=== PATIENT | male | born 1955 | race Caucasian/White ===

== ENCOUNTER 2018-11-09 11:02 | Day surgery (SDC) | payer OTHER ==
[2018-11-09] VITALS (13 sets, daily range): BP systolic 126–159; BP diastolic 66–103; PULSE 63–96; RESP 13–45; Ht 167.6 cm; Wt 85.9 kg
[~2018-11-09] VITALS: Ht 167.6 cm; Wt 85.9 kg
[~2018-11-09 11:02] MED LIST: ALLO300T2 PO; CIPROFLOXACIN 400 MG in D5W 200 ML IVPB SCH; GEMF600T8 PO; GLYCOPYRROLATE 0.4 MG INJ ONE; HYDR25TA6 PO; LOSA100T3 PO; METO-336 PO; NEOSTIGMINE 3 MG/3 ML SYRINGE ONE; TAMS-14 PO
[2018-11-09] MEDS ORDERED: LOSA100T15 PO (11:26)
[2018-11-09] MEDS ORDERED: GABA300C16 PO (11:27)
[2018-11-09] MEDS ORDERED: IOHEXOL 300MG/ML 30 ML BTL ONE (12:00)
--- NOTE | 2018-11-09 12:19 | HPN ---
Date/Time of Note Date/Time of Note DATE: 11/09/18 TIME: 12:19 Interval H&P Admission Note Pt. seen H&P reviewed: No system changes KEITH TIRADO Nov 09, 2018 12:19
--- NOTE | 2018-11-09 13:08 | PDOCDIS ---
Discharge Instructions DIAGNOSIS Discharge Diagnosis Neurogenic bladder and urethral erosion CONDITION Devi Patient Condition: David Good HOME CARE INSTRUCTIONS: Devi Diet Instructions: David Regular ACTIVITY: Devi Activity Restrictions: David No Restrictions FOLLOW UP/APPOINTMENTS Follow-up Plan folow up in office for exchange of supra pubic Tube in 1 month REFERRALS Devi Referring Provider: KEITH Champion EVAN Nov 09, 2018 13:08
--- NOTE | 2018-11-09 13:11 | OPR ---
Date/Time of Note Date/Time of Note DATE: 11/09/18 TIME: 13:10 Operative Report Procedure Date: Nov 09, 2018 Preoperative Diagnosis Neurogenic bladder and urethral erosion Postoperative Diagnosis Same Operation/Procedure Performed Pelvic exam under anesthesia, aspiration of bladder, insertion SPT Surgeon Danielito Fire And Explosion Investigator None Anesthesia Type: general Estimated Blood Loss: none Transfusion none Specimen none Grafts/Implants none Tubes/Drains 14 f SPT Complications none Pt Condition Post Procedure: stable Indications NGB with urethral erosion Procedure Description dict [id number] KEITH TIRADO Nov 09, 2018 13:11
--- NOTE | 2018-11-09 13:18 | PREAC ---
Date/Time of Note Date/Time of Note DATE: 11/09/18 TIME: 13:17 Anesthesia Eval and Record Evaluation Time Pre-Procedure Interview DATE: 11/09/18 TIME: 13:17 Age 63 Sex male NPO: 8 hrs Preoperative diagnosis kidney stone Planned procedure cystoscopy Past Medical History Past Medical History: Includes Cardio: HTN Neuro: Peripheral neuropathy Surgery & Anesthesia Issues No known issue Meds Anticoagulation: No Beta Pia within 24 hr: No Reason Beta Pia not given: Pt. not on B-Pia Reported Medications Gabapentin* (Gabapentin*) 300 Mg Capsule, 300 MG PO TID, #90 CAP 11/09/18 Losartan Potassium* (Losartan Potassium*) 100 Mg Tablet, 100 MG PO DAILY, TAB 11/09/18 Discontinued Reported Medications Metoprolol Succinate* (Toprol XL*) 100 Mg Tab.sr.24h, 100 MG PO DAILY, TAB 04/24/15 Gemfibrozil* (Gemfibrozil*) 600 Mg Tablet, 600 MG PO BID, TAB 04/24/15 Tamsulosin Hcl* (Flomax*) 0.4 Mg Cap.er.24h, 0.4 MG PO DAILY, CAP 04/24/15 Hydrochlorothiazide* (Hydrochlorothiazide*) 25 Mg Tab, 25 MG PO DAILY, TAB 04/24/15 Losartan Potassium* (Cozaar*) 100 Mg Tablet, 100 MG PO DAILY, TAB 04/24/15 Allopurinol* (Allopurinol*) 300 Mg Tablet, 300 MG PO DAILY, TAB 04/24/15 Hydrochlorothiazide (Hydrochlorothiazide) 25 Mg Tablet, 25 MG PO DAILY 01/08/12 Current Medications Ciprofloxacin/ Dextrose 200 ml @ 200 mls/hr PREOP IVPB ; Start 11/09/18 at 06: 00; Stop 11/09/18 at 17:00 Meds reviewed: Yes Allergies Coded Allergies: No Known Allergies (Verified Allergy, Unknown, 11/09/18) Allergies Reviewed: Yes Labs/Studies Labs Reviewed: Reviewed by anesthesiologist test: N/A Pre-procedure Exam Last vitals Vital Signs Date Temp Pulse Resp B/P (MAP) Pulse Ox O2 O2 Flow FiO2 Time Delivery Rate 11/09/18 98.1 63 16 126/66 97 Room Air 11:51 (86) Airway: Adequate mouth opening, Adequate thyromental dist Mallampati: Mallampati III Teeth: Normal Lung: Normal Heart: Normal ASA Physical Status ASA physical status: 2 Emergency: None Pre-operative Attestations Prior to commencing anesthesia and surgery, the patient was re-evaluated, there was verification of: *The patient's identity *The results of appropriate recent lab work and preoperative vital signs *The above evaluation not changing prior to induction *Anesthetic plan, risk benefits, alternative and complications discussed with patient/family; questions answered; patient/family understands, accepts and wishes to proceed. PAPITO KHAN DO Nov 09, 2018 13:18
[2018-11-09] MEDS ORDERED: LIDOCAINE 1% (MDV) 20 ML INJ ONE (13:26)
[2018-11-09] MEDS ORDERED: PROPOFOL 20 ML ONE (13:26)
[2018-11-09] MEDS ORDERED: MIDAZOLAM 1 MG/ML 2 ML INJ ONE (13:26)
[2018-11-09] MEDS ORDERED: ROCURONIUM 50 MG INJ ONE (13:31)
[2018-11-09] MEDS ORDERED: DEXAMETHASONE 4 MG/ML 5 ML INJ ONE (13:36)
[2018-11-09] MEDS ORDERED: FENTAnyl 50 MCG/ML VIAL ONE (13:41)
--- NOTE | 2018-11-09 14:52 | PAC ---
Date/Time of Note Date/Time of Note DATE: 11/09/18 TIME: 14:51 Post-Anesthesia Notes Post-Anesthesia Note Last documented vital signs Vital Signs Date Temp Pulse Resp B/P (MAP) Pulse Ox O2 O2 Flow FiO2 Time Delivery Rate 11/09/18 98.5 90 16 128/75 97 Room Air 1451 Activity: WNL Respiratory function: WNL Cardiovascular function: WNL Mental status: Baseline Pain reasonably controlled: Yes Hydration appropriate: Yes Nausea/Vomiting absent: Yes PAPITO KHAN DO Nov 09, 2018 14:51
--- NOTE | 2018-11-09 14:54 | OPR ---
Date/Time of Note Date/Time of Note DATE: 11/09/18 TIME: 14:51 Operative Report Procedure Date: Nov 09, 2018 Preoperative Diagnosis b/l obstructing ureteral stones Postoperative Diagnosis same Operation/Procedure Performed b/l rgp. right ureteroscopy with holmium laser and basketing of fragments, insertion right ureteral stone, left ureteroscopy with holmium laser. Surgeon Danielito Archery Equipment Repairer none Anesthesia Type: general Estimated Blood Loss: none Transfusion none Specimen stone Grafts/Implants none Tubes/Drains 24 f 4.8 right ureteral stent Complications none Pt Condition Post Procedure: stable Disposition: PACU Indications b/l stone Procedure Description dict [id number] KEITH TIRADO Nov 09, 2018 14:54
[2018-11-09] MEDS ORDERED: hydrALAzine 20 MG INJ IV PRN (15:00)
[2018-11-09] MEDS ORDERED: LABETALOL HCL 20MG INJ IV PRN (15:00)
[2018-11-09] MEDS ORDERED: ONDANSETRON 4 MG INJ IV PRN (15:00)
[2018-11-09] MEDS ORDERED: CIPROFLOXACIN 400MG/D5W 200 ML ONE (15:02)
[2018-11-09] MEDS: HYDROmorphONE 1 MG/5 ML IV SYRINGE IV PRN ×2 (15:05→15:22)
--- NOTE | 2018-11-09 15:12 | OPR ---
DATE OF OPERATION: PREOPERATIVE DIAGNOSES: Bilateral obstructing ureteral calculi. POSTOPERATIVE DIAGNOSES: Bilateral obstructing ureteral calculi. PROCEDURES: Cystoscopy, removal of right ureteral stent, right retrograde pyelogram, right ureterosc opy with endoscopic holmium laser lithotripsy, basketing stone fragments, insertion of right ureteral stent, left retrograde pyelogram, left endoscopic holmium laser lithotripsy. SURGEON: Adrian Esteves MD ANESTHESIA: General. COMPLICATIONS: None. FINDINGS: Bilateral obstructing stones. DRAINS: 24 cm 4.8 double J right ureteral stent. PROCEDURE IN DETAILS: The patient was brought into the operating room and placed on the operating ta ble in the supine lithotomy position. He was prepped and draped in the usual fashion after anesthesi a was induced. A timeout was undertaken and appropriate pressure points were padded. He received pr eoperative antibiotic therapy. A KUB was obtained which demonstrated a previously placed right urete ral stent to be in proper anatomical position. No stone could be appreciated overlying the ureteral pass. Rigid cystoscopy was undertaken with a 12-degree, 30-degree angle lens without abnormalities. The anterior urethra could be appreciated. Trilobar enlargement of prostatic lobes was noted protru ding from the right ureteral orifice. There was a right stent. Left ureteral orifice is within norm al limits. The right stent was brought up to the level of the urethral meatus with the flexible gras pers and wire was placed at the level of the renal pelvis. The stent and string removed intact. Nex t, the right retrograde pyelogram was undertaken demonstrating distal ureter impacted stone. Utilizi ng the semirigid ureteroscope, the ureteroscope was inserted into the distal ureter where the impacte d stone was identified. This was subsequently fragmented with a 365 micron holmium fiber with initia l energy setting of 0.8 joules. The stone fragmented very well without any difficulty and the fragme nts were removed with nitinol tipless basket until no further stone burden could be appreciated. Rep resentative samples sent to pathology for stone analysis. Repeat ureteroscopy into the more proximal portion of the dilated ureter demonstrated no further stone burden and thus lying over the wire. A 24 cm 4.8 double-J ureteral stent was inserted with proximal aspect coiling within the renal pelvis a nd the distal aspect coiling within the bladder. Proper positioning was confirmed with direct vision fluoroscopy and KUB. Left retrograde pyelogram was undertaken which demonstrated complete obstructi on of the distal ureter over the renal pelvis. A wire including an Amplatz and a Glidewire were unab le to be placed proximal to this region due to complete obstruction. Due to complete obstruction, it was decided to undertake left ureteroscopy, so as to place a stent and un-obstruct the kidney. The semirigid ureteroscope was easily entered into the distal ureter where a large stone was appreciated which completely obstructed the ureter and is growing into the wall, thus representing very advanced stone disease. Contrast was unable to pass proximal to this region except for a very slight amount u nder pressure. At no point I passed a wire proximal to this and thus it was decided to take endoscop ic holmium laser lithotripsy, so as to un-obstruct the ureter. This was performed under direct visio n at all times as I did not have proximal access. Preoperatively, he was noted to have an 11 mm ston e on the side. The stent was noted to be very hard and utilizing a joule of 0.8 as well as 1.0 fully fragmented the stone and thus, the setting was increased to 1.2. Fragmentation of the very large st one was undertaken for a prolonged period of time as the stone was very large and very hard. Only fr agmentation was undertaken under direct vision. Despite significant fragmentation of the stone, I wa s unable to get to the most proximal aspect and I was unable to place a wire. Small amount of oozing and edema was appreciated which limited by visualization and thus it was decided to stop the procedu re. Once, I was unable to pass anything proximal to this area and thus, the scope was removed. He to lerated the procedure well. He will follow up and be rescheduled for a second stage left-sided inter vention including left ureteroscopic stone extraction with endoscopic holmium laser lithotripsy and b asketing of fragment. The patient may additionally require antegrade access. There were no noted co mplications. He was discharged home on [place] 5/325 one tab p.o. q.6 hours p.r.n., dispensed #30, no refill. Dictated By: ADRIAN REYNOLDS/NTS Conf#: [id number] DID#: [id number]
[2018-11-09] MEDS ORDERED: HYDROCODONE/APAP (5/325) TAB PO ONE (17:00)
== END 2018-11-09 17:30 | disposition home or self-care (01) ==
LOC: SDS 11:02
PROVIDERS: ATTEND Urology
DX: N20.1 Calculus of ureter (principal)
CPT/HCPCS: 52332; 52352; 74430; 88300; J0744; J1100; J1170; J2250; J3010; Q9967; Z7610; C2617; J2710

== ENCOUNTER 2018-12-08 07:31 | Inpatient (IN) | payer OTHER ==
[~2018-12-08] VITALS: Ht 167.6 cm; Wt 90.0 kg
[~2018-12-08 07:31] MED LIST changes: -ALLO300T2 PO; -CIPROFLOXACIN 400 MG in D5W 200 ML IVPB SCH; +GABA300C16 PO; -GEMF600T8 PO; -GLYCOPYRROLATE 0.4 MG INJ ONE; -HYDR25TA6 PO; +LOSA100T15 PO; -LOSA100T3 PO; -METO-336 PO; -NEOSTIGMINE 3 MG/3 ML SYRINGE ONE; -TAMS-14 PO
[2018-12-08 11:37] VITALS: BP 162/84; PULSE 79; RESP 18
[2018-12-08] MEDS: SOD CHLORIDE 0.9% 1,000 ML IV SCH ×3 (12:06→23:28)
[2018-12-08] MEDS: CEFTRIAXONE 1 GM/50 ML (PMX) 50 ML IVPB SCH (12:08)
[2018-12-08] MEDS: morphine 2 MG INJ IV PRN ×2 (12:09→19:55)
[2018-12-08 12:26] VITALS: Ht 167.6 cm; Wt 90.0 kg
[2018-12-08 14:07] VITALS: BP 142/77; PULSE 71; RESP 18
--- NOTE | 2018-12-08 16:55 | QN ---
Documentation Comment seen and examined ARLENE MALLOY MD Dec 08, 2018 16:55
--- NOTE | 2018-12-08 17:40 | CONS ---
DATE OF ADMISSION: 12/08/2018 DATE OF CONSULTATION: TYPE OF CONSULTATION: Renal. REASON FOR ADMISSION: Renal failure. HISTORY OF PRESENTING ILLNESS: This is a 63-year-old male with a past medical history of hypertensio n, bilateral kidney stones, history of multiple urethral stents, who presented to [facility] on 12/08/2018 secondary to urinary retention. According to the patient, he has urethral stent place d on the right side 3 months ago due to kidney stone. The patient since then has had 2 stents replac ed. He follows urologist there in [place]. The patient had the last stent which was removed on 0 12/05/2018. After that, the patient said that he felt a little better. He was having some urine outp ut; however the next day, he started noticing that he was having some right flank pain. His urine wa s turning brown and he could not make any urine and he came to the emergency department at [place] for further evaluation. On arrival to ED at [facility], he was found to have blood pressur e of 159/91. UA showed small bilirubin, large blood, 300 protein, leukocyte esterase, 25 to 50 RBCs, 5 to 10 WBCs. The patient had labs that showed white count of 9.1, hemoglobin 14.2, platelet count of 132, sodium 136, potassium 4.6, chloride 104, bicarbonate 20, BUN of 37, creatinine of 5.98, calci um of 8.6. The patient had a CT of the abdomen and pelvis that showed severe right-sided hydronephro sis associated with the perinephric fluid stranding, 0.1 x 0.9 x 0.1 cm obstructing stone is identifi ed in right ureteropelvic junction, septate 3 x 5 x 7 mm calculus within the right upper ureter and a punctate 2 mm calculus in the right vesicoureteral junction, right nephrolithiasis, severe chronic l eft hydronephrosis and thinning of the renal cortex, calcified 9 mm calculus within the left mid uret er, advanced diverticulosis, mild aortic atherosclerosis. The patient was transferred to [facility] for insurance reasons and for urologist. PAST MEDICAL HISTORY: 1. Hypertension. 2. History of bilateral kidney stones and ureteral stents. 3. Peripheral neuropathy. ALLERGIES: NONE. MEDICATIONS TAKING AT HOME: 1. Losartan. 2. Gabapentin. SOCIAL HISTORY: Denies any history of smoking, alcohol or any drug use. Lives in [place]. FAMILY HISTORY: Significant for kidney stones in the father. REVIEW OF SYSTEMS: The patient complained of right flank pain, has some suprapubic fullness. Denies any nausea, vomiting, any fevers, chills. Denies any headache, any blurry vision. Denies any focal neurological deficit. Denies any hematemesis, any melena, any bright red blood per rectum. PHYSICAL EXAMINATION: VITAL SIGNS: Blood pressure 142/77, temperature 99, pulse 77, respirations 18. GENERAL: The patient is awake, alert, oriented, does not appear to be in any acute distress. HEENT: Pupils are equal, round, react to light. NECK: Supple. No JVD. HEART: Regular rate and rhythm. LUNGS: Clear to auscultate bilaterally. ABDOMEN: Soft, some suprapubic tenderness. Positive bowel sounds. EXTREMITIES: No clubbing, cyanosis or edema. LABORATORY DATA: Here, sodium 140, potassium 4.5, chloride 108, bicarbonate 22, BUN of 42, creatinin e 8.22. White count of 10.2, hemoglobin 13.1, platelet count of 129. DIAGNOSTIC DATA: CT scan as above. ASSESSMENT AND PLAN: This is a 63-year-old male who presented with: 1. Acute on chronic renal failure likely secondary to severe hydronephrosis, perinephric fluid stran ding, 1.5 cm obstructing stone at the right ureteropelvic junction, additional 7 mm calculus within t he right upper ureter, punctate 2 mm calculus in right vesicoureteral junction. The patient also has severe chronic left hydronephrosis and thinning of the renal cortex, calcified 9 mm calculus within the left mid ureter. 2. Urinary obstruction likely secondary to kidney stone. 3. Hypertension. PLAN: At this period of time, the patient is admitted to med/surg. The patient will be on gentle IV fluids, IV antibiotics. We will send for UA, urine culture. Juli is already in place. Dr. Solomno alexander has been called. The patient will likely need surgical evaluation; however not sure how much of hi s kidney function . We will also check previous labs from [place] regarding the patient's re nal failure. Rest of the treatment will depend on the patient's hospitalization course. Dictated By: ARLENE GAN/YAMIL Conf#: [id number] DID#: [id number] CC: NEYMAR HICKS MD; MONICA PADGETT MD;*EndCC*
[2018-12-08 19:55] VITALS: BP 138/76; PULSE 71; RESP 18
--- NOTE | 2018-12-08 20:02 | CONS ---
Assessment/Plan Assessment/Plan Hospital Course (Demo Recall) 63-year-old male presented initially to [facility] because of flank pain. He underwent a CT scan of the abdomen and pelvis and was diagnosed with right ureteral stone with hydronephrosis. He was transferred to [facility] as they were not able to get a urologist to see him at the other hospital. Patient is known to have a history of kidney stone. His creatinine is high and has increased from what it was at the other hospital. He underwent a repeat CT scan here and that showed: Moderate to severe right hydroureter nephrosis with stranding of surrounding perinephric and pararenal fat. 12 mm obstructing calculus proximal ureter. 6 mm stone in mid to distal ureter. Preservation of right renal parenchyma. Multiple nonobstructing right renal calculi. Severe left hydroureter nephrosis with severe atrophy of the parenchyma. Obstructing stone mid to distal ureter with small nonobstructing stone fragments in the hydronephrotic kidney. Diverticulosis. Right basilar atelectasis. Fatty liver. Upon reviewing the CT scan the left kidney has no parenchyma that is worth saving. Patient depends only on his right kidney which is obstructed by the stone. Therefore he will need to undergo a cystoscopy and insertion of right ureteral stent to drain his kidney and then at a later date go in and do laser lithotripsy to the stone. The patient was here in October and underwent cystoscopy and ureteroscopy for a distal right ureteral stone by . I did put a call to Dr. Esteves and left a message on his cell phone if he would like to assume care of this patient I will sign off to him. Dr. Esteves called me back and he is busy in another hospital all day tomorrow. Therefore I will proceed and insert a JJ stent for him tomorrow. Consultation Date/Type/Reason Admit Date/Time Dec 08, 2018 at 09:15 Date of Consultation: Dec 08, 2018 Type of Consult Urology Reason for Consultation Right ureteral stone with hydronephrosis and renal failure. Requesting Provider: ARLENE MALLOY MD Date/Time of Note DATE: 12/08/18 TIME: 19:47 Hx of Present Illness 63-year-old male presented initially to [facility] because of flank pain. He underwent a CT scan of the abdomen and pelvis and was diagnosed with right ureteral stone with hydronephrosis. He was transferred to [facility] as they were not able to get a urologist to see him at the other hospital. Patient is known to have a history of kidney stone. His creatinine is high and has increased from what it was at the other hospital. He underwent a repeat CT scan here and that showed: Moderate to severe right hydroureter nephrosis with stranding of surrounding perinephric and pararenal fat. 12 mm obstructing calculus proximal ureter. 6 mm stone in mid to distal ureter. Preservation of right renal parenchyma. Multiple nonobstructing right renal calculi. Severe left hydroureter nephrosis with severe atrophy of the parenchyma. Obstructing stone mid to distal ureter with small nonobstructing stone fragments in the hydronephrotic kidney. Diverticulosis. Right basilar atelectasis. Fatty liver. Upon reviewing the CT scan the left kidney has no parenchyma that is worth saving. Patient depends only on his right kidney which is obstructed by the stone. Therefore he will need to undergo a cystoscopy and insertion of right ureteral stent to drain his kidney and then at a later date go in and do laser lithotripsy to the stone. Constitutional: no complaints Eyes: no complaints ENT: no complaints Respiratory: no complaints Cardiovascular: no complaints Gastrointestinal: pain (Lower abdomen and right flank) Genitourinary: flank pain (Right side) Musculoskeletal: no complaints Skin: no complaints Neurologic: no complaints Endocrine: no complaints Lymphatic: no complaints Psychological: no complaints Immunologic: no complaints Past Medical History Medical History: hypertension, other (Peripheral neuropathy) Home Meds Reported Medications Gabapentin* (Gabapentin*) 300 Mg Capsule, 300 MG PO TID, #90 CAP 11/09/18 Losartan Potassium* (Losartan Potassium*) 100 Mg Tablet, 100 MG PO DAILY, TAB 11/09/18 Medications Current Medications Sodium Chloride 1,000 ml @ 100 mls/hr Q10H IV Last administered on 12/08/18at 12:06; Admin Dose 100 MLS/HR; Start 12/08/18 at 12:00 Ceftriaxone Sodium 50 ml @ 100 mls/hr Q24H IVPB Last administered on 12/08/18at 12:08; Admin Dose 100 MLS/HR; Start 12/08/18 at 12:00 Morphine Sulfate (morphine) 2 mg Q4H PRN IV SEVERE PAIN LEVEL 7-10 Last administered on 12/08/18at 12:09; Admin Dose 2 MG; Start 12/08/18 at 12:00 Hydralazine HCl (Apresoline) 25 mg Q8 PO Last administered on 12/08/18at 18:14; Admin Dose 25 MG; Start 12/08/18 at 17:00 Gabapentin (Neurontin) 100 mg TID PO ; Start 12/08/18 at 21:00 Allergies: Coded Allergies: No Known Allergies (Verified Allergy, Unknown, 11/09/18) Past Surgical History Past Surgical Hx: other (Patient has had ureteroscopy's and JJ stents placed before. He also had left inguinal hernia repair) Social History Alcohol Use: occasionally Smoking Status: Never smoker Drug Use: none Exam/Review of Systems Exam Vitals Vital Signs Date Temp Pulse Resp B/P (MAP) Pulse Ox O2 O2 Flow FiO2 Time Delivery Rate 12/08/18 99.0 71 18 142/77 95 14:07 (98) Constitutional: alert Psych: no complaints Head: normocephalic ENMT: nl external ears & nose Neck: supple, non-tender Respiratory: normal air movement; No wheezing Cardiovascular: No jugular venous distention (JVD) Gastrointestinal: soft Genitourinary - Male: nl penis, nl scrotum, CVA tenderness (Right flank) Musculoskeletal: nl extremities to inspection Extremities: No calf tenderness Neurological: nl mental status Skin: nl turgor Results Result Diagram: 12/08/18 1253 12/08/18 1253 Results 24hrs Laboratory Tests Test 12/08/18 12:53 White Blood Count 10.2 # Red Blood Count 4.31 L Hemoglobin 13.1 #L Hematocrit 39.1 #L Mean Corpuscular Volume 90.7 Mean Corpuscular Hemoglobin 30.4 Mean Corpuscular Hemoglobin Concent 33.5 Red Cell Distribution Width 12.9 Platelet Count 129 L Mean Platelet Volume 9.8 Immature Granulocytes % 0.400 Neutrophils % 73.6 Lymphocytes % 15.4 Monocytes % 9.9 Eosinophils % 0.4 Basophils % 0.3 Nucleated Red Blood Cells % 0.0 Immature Granulocytes # 0.040 H Neutrophils # 7.5 Lymphocytes # 1.6 Monocytes # 1.0 H Eosinophils # 0.0 Basophils # 0.0 Nucleated Red Blood Cells # 0.0 Sodium Level 140 Potassium Level 4.5 Chloride Level 108 Carbon Dioxide Level 22 Anion Gap 10 Blood Urea Nitrogen 42 H Creatinine 8.22 H Est Glomerular Filtrat Rate mL/min 7 L Glucose Level 84 Calcium Level 8.[address] scan of the abdomen and pelvis showed: Moderate to severe right hydroureter nephrosis with stranding of surrounding perinephric and pararenal fat. 12 mm obstructing calculus proximal ureter. 6 mm stone in mid to distal ureter. Preservation of right renal parenchyma. Multiple nonobstructing right renal calculi. Severe left hydroureter nephrosis with severe atrophy of the parenchyma. Obstructing stone mid to distal ureter with small nonobstructing stone fragments in the hydronephrotic kidney. Diverticulosis. Right basilar atelectasis. Fatty liver. Medications Medication Current Medications Sodium Chloride 1,000 ml @ 100 mls/hr Q10H IV Last administered on 12/08/18at 12:06; Admin Dose 100 MLS/HR; Start 12/08/18 at 12:00 Ceftriaxone Sodium 50 ml @ 100 mls/hr Q24H IVPB Last administered on 12/08/18at 12:08; Admin Dose 100 MLS/HR; Start 12/08/18 at 12:00 Morphine Sulfate (morphine) 2 mg Q4H PRN IV SEVERE PAIN LEVEL 7-10 Last administered on 12/08/18at 12:09; Admin Dose 2 MG; Start 12/08/18 at 12:00 Hydralazine HCl (Apresoline) 25 mg Q8 PO Last administered on 12/08/18at 18:14; Admin Dose 25 MG; Start 12/08/18 at 17:00 Gabapentin (Neurontin) 100 mg TID PO ; Start 12/08/18 at 21:00 MONICA PADGETT MD Dec 08, 2018 19:57
[2018-12-08] MEDS: GABAPENTIN 100 MG CAP PO SCH (21:19)
[2018-12-08] MEDS ORDERED: ONDANSETRON 4 MG INJ IV PRN (22:30)
[2018-12-09] VITALS (26 sets, daily range): BP systolic 116–189; BP diastolic 61–100; PULSE 74–112; RESP 13–20
--- NOTE | 2018-12-09 01:36 | HP ---
DATE OF ADMISSION: 12/08/2018 CHIEF COMPLAINT: Right flank pain. HISTORY OF PRESENT ILLNESS: The patient is a 63-year-old gentleman with a history of right ureteral stone with hydronephrosis. The patient is also status post laser treatment for his right stone. The patient did also history of cystoscopy and ureteroscopy for a distal right ureter stone by Dr. Esteves . The patient recently had a CT scan of the abdomen and pelvis done at [facility] ER which revealed right ureteral stone with hydronephrosis. The patient also had obstructive uropathy with cr eatinine up to 8.2. Dr. Padgett was called and the patient will be taken to OR tomorrow for cystosco py and insertion of right ureteral stent to drain his kidney and then at a later date, the patient wi ll undergo lithotripsy. The patient also has severe left hydroureter with severe atrophy of the pare nchyma and left kidney in fact has no parenchymal that his worth saving. The patient currently remai ns only on his right kidney which is affected by the stone. The patient also is symptomatic. The pa tient denies any chest pain, shortness of breath. No history of fever or chills. No. No history of recent hematuria. No history of focal weakness. No history of leg edema. PAST MEDICAL HISTORY: Significant for hypertension. ALLERGIES: NONE. SOCIAL HISTORY: No smoking or alcohol abuse. FAMILY HISTORY: The patient's father has kidney stones. PHYSICAL EXAMINATION: GENERAL: Revealed the patient to be awake, alert, fairly oriented. VITAL SIGNS: Temperature 99.2, pulse 71, respiration 18, blood pressure 132/76, O2 saturation 95% on room air. HEENT: Atraumatic, normocephalic. Nose and ears are normal. Oropharynx is clear. NECK: Supple. No mass, no thyromegaly. CHEST: Fairly clear. CARDIOVASCULAR: S1, S2 normal. No murmur. ABDOMEN: Soft. Right flank tenderness present. No guarding, rigidity. Bowel sounds present. EXTREMITIES: No leg edema. NEUROLOGIC: The patient is awake, alert, fairly oriented. LABORATORY DATA: WBC 10.2, hemoglobin 13.1, platelet 129. The patient has some mild thrombocytopeni a even back in 2013, he had a mild thrombocytopenia. Sodium 140, potassium 4.5, BUN 42, creatinine 8 up from 2 back in 2013, bicarbonate is still 22 and potassium is normal. DIAGNOSTIC DATA: CT scan of the abdomen and pelvis done at [facility] revealed moderate to severe right hydroureter with stranding of surrounding perinephric and perirenal fat, 12 mm obstructi ng calculus in proximal ureter, 6 mm stone in the mid to distal ureter of right renal parenchym a, multiple nonobstructive right renal calculi, severe left hydroureteronephrosis with severe atrophy of parenchyma and also diverticulosis. IMPRESSION: 1. Severe right hydroureter with multiple obstructing ureteral stones and preservation of right susan l parenchyma and multiple nonobstructive right renal calculi. 2. Severe left hydroureteronephrosis with severe atrophy of parenchyma and obstructive stone mid to distal ureter. 3. History of hypertension. 4. Possible infected stone versus right pyelonephritis. PLAN: The patient will be admitted on medical floor. The patient has been started on IV fluids and will have a UA and C and S sent. Bustos is in place. The patient has been empirically started on cef triaxone. For hypertension, the patient will be continued on hydralazine. We will add SCD for DVT p rophylaxis. Tylenol and morphine for pain and also Zofran for nausea, vomiting. Plan of care was di scussed with Dr. Clifton Hicks. Meanwhile, Dr. Padgett has been also consulted from urology standpoin t. Dictated By: LADAN BENITES MD AB/NTS Conf#: [id number] DID#: [id number] CC: MONICA PADGETT MD; CLIFTON HICKS MD;*End*
[2018-12-09] MEDS: SOD CHLORIDE 0.9% 1,000 ML IV SCH ×3 (08:00→23:58)
[2018-12-09] MEDS: GABAPENTIN 100 MG CAP PO SCH ×3 (08:32→21:25)
[2018-12-09] MEDS: morphine 2 MG INJ IV PRN (10:19)
--- NOTE | 2018-12-09 11:21 | CONS ---
[facility] HCIS Consult Follow-up Patient Name: Joel Jauregui Unit Number: [id number] Date of : 1955 Patient Status: Admitted Inpatient Attending Doctor: Clifton Nieto MD Edit: ARLENE MALLOY MD on 12/09/18 @ 18:06 SEEN AND EXAMINED Cr 10 s/p obtruction, pt has chronic left hydropnephrosis baseline CR 2.48 will monitor cr after obstrcution id relieved change to cefepime due to pseudomonas coverage phos binder Assessment/Plan Assessment/Plan Hospital Course (Demo Recall) 1. Acute on chronic renal failure likely secondary to severe hydronephrosis, perinephric fluid stranding, 1.5 cm obstructing stone at the right ureteropelvic junction, additional 7 mm calculus within the right upper ureter, punctate 2 mm calculus in right vesicoureteral junction. The patient also has severe chronic left hydronephrosis and thinning of the renal cortex, calcified 9 mm calculus within the left mid ureter. 2. Urinary obstruction likely secondary to kidney stone. 3. Hypertension, uncontrolled. 4. Obesity 5. Normocytic hypochromic anemia 6. UTI 7. Hyperphosphatemia 2/2 BO 8. Diverticulosis. 9. Fatty liver Assessment/Plan (Daily) - med/surg. -pending for urinary stent -better hypertension control -GI prophylaxis start protonix -c/w gentle IV fluids, IV antibiotics. - UA positive for UTI, -urine culture pending. -c/w Bustos is already in place. -Dr. Stockton urology consult is appreciated Consultation Date/Type/Reason Admit Date/Time Dec 08, 2018 at 09:15 Initial Consult Date 12/08/18 Type of Consult nephrology Reason for Consultation dr Nieto Requesting Provider: ARLENE MALLOY MD Date/Time of Note DATE: 12/09/18 TIME: 11:14 24 HR Interval Summary Free Text/Dictation CVA tenderness Exam/Review of Systems Exam Vitals Vital Signs Date Temp Pulse Resp B/P (MAP) Pulse Ox O2 O2 Flow FiO2 Time Delivery Rate 12/09/18 98.6 74 17 158/83 96 Room Air 07:17 (108) Intake and Output 12/08/18 12/08/18 12/09/18 1414:59 22:59 06:59 IntakeIntake Total 1210 ml 1500 ml OutputOutput Total 100 ml 30 ml BalanceBalance 1110 ml 1470 ml Constitutional: alert, oriented ENMT: nl external ears & nose Neck: supple Respiratory: clear to auscultation Gastrointestinal: soft Genitourinary - Male: CVA tenderness (right side) Results Result Diagram: 12/08/18 1253 12/09/18 0520 Results 24hrs Laboratory Tests Test 12/08/18 12:53 12/08/18 19:30 12/08/18 19:50 12/09/18 05:18 White Blood Count 10.2 # Red Blood Count 4.31 L Hemoglobin 13.1 #L Hematocrit 39.1 #L Mean Corpuscular 90.7 Volume Mean Corpuscular 30.4 Hemoglobin Mean Corpuscular 33.5 Hemoglobin Concent Red Cell 12.9 Distribution Width Platelet Count 129 L Mean Platelet Volume 9.8 Immature 0.400 Granulocytes % Neutrophils % 73.6 Lymphocytes % 15.4 Monocytes % 9.9 Eosinophils % 0.4 Basophils % 0.3 Nucleated Red Blood 0.0 Cells % Immature 0.040 H Granulocytes # Neutrophils # 7.5 Lymphocytes # 1.6 Monocytes # 1.0 H Eosinophils # 0.0 Basophils # 0.0 Nucleated Red Blood 0.0 Cells # Sodium Level 140 Potassium Level 4.5 Chloride Level 108 Carbon Dioxide Level 22 Anion Gap 10 Blood Urea Nitrogen 42 H Creatinine 8.22 H Est Glomerular 7 L Filtrat Rate mL/min Glucose Level 84 Calcium Level 8.4 Prothrombin Time 14.1 Prothrombin Time 1.1 Ratio INR International 1.08 Normalized Ratio Urine Color YELLOW Urine Clarity CLOUDY A Urine pH 6.0 Urine Specific 1.008 [place] Urine Ketones NEGATIVE Urine Nitrite NEGATIVE Urine Bilirubin NEGATIVE Urine Urobilinogen NEGATIVE Urine Leukocyte 3+ H Esterase Urine Microscopic > 182 H RBC Urine Microscopic 93 H WBC Urine Bacteria FEW A Urine Mucus FEW A Urine Hemoglobin 3+ H Urine Glucose NEGATIVE Urine Total Protein 2+ H Phosphorus Level 5.8 H Test 12/09/18 05:20 Sodium Level 138 Potassium Level 4.8 Chloride Level 108 Carbon Dioxide Level 23 Anion Gap 7 Blood Urea Nitrogen 54 H Creatinine 10.18 H Est Glomerular 5 L Filtrat Rate mL/min Glucose Level 88 Calcium Level 8.1 L Medications Medication Current Medications Sodium Chloride 1,000 ml @ 100 mls/hr Q10H IV Last administered on 12/09/18at 10:19; Admin Dose 100 MLS/HR; Start 12/08/18 at 12:00 Ceftriaxone Sodium 50 ml @ 100 mls/hr Q24H IVPB Last administered on 12/08/18at 12:08; Admin Dose 100 MLS/HR; Start 12/08/18 at 12:00 Morphine Sulfate (morphine) 2 mg Q4H PRN IV SEVERE PAIN LEVEL 7-10 Last administered on 12/09/18at 10:19; Admin Dose 2 MG; Start 12/08/18 at 12:00 Hydralazine HCl (Apresoline) 25 mg Q8 PO Last administered on 12/09/18at 05:29; Admin Dose 25 MG; Start 12/08/18 at 17:00 Gabapentin (Neurontin) 100 mg TID PO Last administered on 12/09/18at 08:32; Adm in Dose 100 MG; Start 12/08/18 at 21:00 Acetaminophen (Tylenol Tab) 500 mg Q4H PRN PO MILD PAIN(1-3)OR ELEVATED TEMP; Start 12/08/18 at 22:30 Ondansetron HCl (Zofran Inj) 4 mg Q6H PRN IV NAUSEA AND/OR VOMITING; Start 12/08/18 at 22:30 TONY ROB Dec 09, 2018 11:21
[2018-12-09] MEDS: CEFTRIAXONE 1 GM/50 ML (PMX) 50 ML IVPB SCH (12:58)
[2018-12-09] MEDS: METOPROLOL (XL) 25 MG TAB PO SCH (12:59)
--- NOTE | 2018-12-09 15:08 | PN ---
Date/Time of Note Date/Time of Note DATE: 12/09/18 TIME: 15:07 Assessment/Plan VTE [place]axis [place] [facility] [place] risk: 2 SCD applied (from Ns): Yes Pharmacological prophylaxis: other Lines/Catheters IV Catheter Type (from [facility]): Peripheral IV Urinary Cath still in place: Yes Reason Cath still needed: urinary retention Assessment/Plan Assessment/Plan 1. Severe right hydroureter with multiple obstructing ureteral stones and preservation of right renal parenchyma and multiple nonobstructive right renal calculi. - per urology 2. Severe left hydroureteronephrosis with severe atrophy of parenchyma and obstructive stone mid to distal ureter. 3. Acute Kidney Injury - Nephrology follows 4. Possible infected stone versus right pyelonephritis. 5. Gout 6. Obesity - weight management 7.History of hypertension. Patient seen in collaboration with Dr Ochoa. staff Result Diagram: 12/08/18 1253 12/09/18 0520 Results 24hrs Laboratory Tests Test 12/08/18 19:30 12/08/18 19:50 12/09/18 05:18 12/09/18 05:20 Prothrombin Time 14.1 Prothrombin Time 1.1 Ratio INR International 1.08 Normalized Ratio Urine Color YELLOW Urine Clarity CLOUDY A Urine pH 6.0 Urine Specific 1.008 [place] Urine Ketones NEGATIVE Urine Nitrite NEGATIVE Urine Bilirubin NEGATIVE Urine Urobilinogen NEGATIVE Urine Leukocyte 3+ H Esterase Urine Microscopic > 182 H RBC Urine Microscopic 93 H WBC Urine Bacteria FEW A Urine Mucus FEW A Urine Hemoglobin 3+ H Urine Glucose NEGATIVE Urine Total Protein 2+ H Phosphorus Level 5.8 H Sodium Level 138 Potassium Level 4.8 Chloride Level 108 Carbon Dioxide Level 23 Anion Gap 7 Blood Urea Nitrogen 54 H Creatinine 10.18 H Est Glomerular 5 L Filtrat Rate mL/min Glucose Level 88 Calcium Level 8.1 L Subjective 24 Hr Interval Summary Free Text/Dictation -going for stent placement today Eyes: no complaints ENT: no complaints Respiratory: no complaints Cardiovascular: no complaints Gastrointestinal: no complaints Genitourinary: flank pain (right ) Musculoskeletal: no complaints Exam/Review of Systems Exam Vitals Vital Signs Date Temp Pulse Resp B/P (MAP) Pulse Ox O2 O2 Flow FiO2 Time Delivery Rate 12/09/18 100.2 99 17 169/91 98 Room Air 14:13 (117) Intake and Output 12/08/18 12/08/1819 1515:00 23:00 07:00 IntakeIntake Total 1210 ml 1500 ml OutputOutput Total 100 ml 30 ml BalanceBalance 1110 ml 1470 ml Constitutional: alert, oriented, well developed, obese Psych: nl mood/affect Head: atraumatic Eyes: EOMI, nl lids, nl sclera ENMT: nl external ears & nose Neck: non-tender ( ) Respiratory: clear to auscultation Cardiovascular: nl pulses, other (s1s2) Gastrointestinal: soft, non-tender Musculoskeletal: nl extremities to inspection Extremities: normal pulses Neurological: nl mental status, nl speech Skin: nl turgor Lymph: nontender Results Results 24hrs Laboratory Tests Test 12/08/18 19:30 12/08/18 19:50 12/09/18 05:18 12/09/18 05:20 Prothrombin Time 14.1 Prothrombin Time 1.1 Ratio INR International 1.08 Normalized Ratio Urine Color YELLOW Urine Clarity CLOUDY A Urine pH 6.0 Urine Specific 1.008 [place] Urine Ketones NEGATIVE Urine Nitrite NEGATIVE Urine Bilirubin NEGATIVE Urine Urobilinogen NEGATIVE Urine Leukocyte 3+ H Esterase Urine Microscopic > 182 H RBC Urine Microscopic 93 H WBC Urine Bacteria FEW A Urine Mucus FEW A Urine Hemoglobin 3+ H Urine Glucose NEGATIVE Urine Total Protein 2+ H Phosphorus Level 5.8 H Sodium Level 138 Potassium Level 4.8 Chloride Level 108 Carbon Dioxide Level 23 Anion Gap 7 Blood Urea Nitrogen 54 H Creatinine 10.18 H Est Glomerular 5 L Filtrat Rate mL/min Glucose Level 88 Calcium Level 8.1 L Medications Medication Current Medications Sodium Chloride 1,000 ml @ 100 mls/hr Q10H IV Last administered on 12/09/18at 10:19; Admin Dose 100 MLS/HR; Start 12/08/18 at 12:00 Ceftriaxone Sodium 50 ml @ 100 mls/hr Q24H IVPB Last administered on 12/09/18at 12:58; Admin Dose 100 MLS/HR; Start 12/08/18 at 12:00 Morphine Sulfate (morphine) 2 mg Q4H PRN IV SEVERE PAIN LEVEL 7-10 Last administered on 12/09/18at 10:19; Admin Dose 2 MG; Start 12/08/18 at 12:00 Hydralazine HCl (Apresoline) 25 mg Q8 PO Last administered on 12/09/18at 05:29; Admin Dose 25 MG; Start 12/08/18 at 17:00 Gabapentin (Neurontin) 100 mg TID PO Last administered on 12/09/18at 08:32; Admin Dose 100 MG; Start 12/08/18 at 21:00 Acetaminophen (Tylenol Tab) 500 mg Q4H PRN PO MILD PAIN(1-3)OR ELEVATED TEMP; Start 12/08/18 at 22:30 Ondansetron HCl (Zofran Inj) 4 mg Q6H PRN IV NAUSEA AND/OR VOMITING; Start 12/08/18 at 22:30 Metoprolol Succinate (Toprol Xl) 25 mg DAILY PO Last administered on 12/09/18at 12:59; Admin Dose 25 MG; Start 12/09/18 at 12:00 Pantoprazole (Protonix Iv) 40 mg DAILY@06 IV ; Start 12/10/18 at 12:00 Hydralazine HCl (Apresoline) 10 mg Q6H PRN IV SBP>160; Start 12/09/18 at 14:30 JEN SALINAS Dec 09, 2018 15:08
[2018-12-09] MEDS: hydrALAzine 20 MG INJ IV PRN (16:20)
[2018-12-09] MEDS ORDERED: LIDOCAINE 2% 20 ML UROJET SYRINGE ONE (17:27)
[2018-12-09] MEDS ORDERED: IOHEXOL 300MG/ML 30 ML BTL ONE (17:28)
--- NOTE | 2018-12-09 17:28 | PREAC ---
Date/Time of Note Date/Time of Note DATE: 12/09/18 TIME: 17:26 Anesthesia Eval and Record Evaluation Time Pre-Procedure Interview DATE: 12/09/18 TIME: 17:26 Age 63 Sex male NPO: 8 hrs Preoperative diagnosis right ureteral stone with hydronephrosis Planned procedure CYSTOSCOPY RIGHT SIDE JJ STENT Past Medical History Past Medical History: Includes Cardio: HTN Surgery & Anesthesia Issues No known issue Meds Anticoagulation: No Beta Pia within 24 hr: No Reason Beta Pia not given: Pt. not on B-Pia Reported Medications Gabapentin* (Gabapentin*) 300 Mg Capsule, 300 MG PO TID, #90 CAP 11/09/18 Losartan Potassium* (Losartan Potassium*) 100 Mg Tablet, 100 MG PO DAILY, TAB 11/09/18 Current Medications Sodium Chloride 1,000 ml @ 100 mls/hr Q10H IV Last administered on 12/09/18at 10:19; Admin Dose 100 MLS/HR; Start 12/08/18 at 12:00 Ceftriaxone Sodium 50 ml @ 100 mls/hr Q24H IVPB Last administered on 12/09/18at 12:58; Admin Dose 100 MLS/HR; Start 12/08/18 at 12:00 Morphine Sulfate (morphine) 2 mg Q4H PRN IV SEVERE PAIN LEVEL 7-10 Last administered on 12/09/18at 10:19; Admin Dose 2 MG; Start 12/08/18 at 12:00 Hydralazine HCl (Apresoline) 25 mg Q8 PO Last administered on 12/09/18at 05:29; Admin Dose 25 MG; Start 12/08/18 at 17:00 Gabapentin (Neurontin) 100 mg TID PO Last administered on 12/09/18at 08:32; Admin Dose 100 MG; Start 12/08/18 at 21:00 Acetaminophen (Tylenol Tab) 500 mg Q4H PRN PO MILD PAIN(1-3)OR ELEVATED TEMP; Start 12/08/18 at 22:30 Ondansetron HCl (Zofran Inj) 4 mg Q6H PRN IV NAUSEA AND/OR VOMITING; Start 12/08/18 at 22:30 Metoprolol Succinate (Toprol Xl) 25 mg DAILY PO Last administered on 12/09/18at 12:59; Admin Dose 25 MG; Start 12/09/18 at 12:00 Pantoprazole (Protonix Iv) 40 mg DAILY@06 IV ; Start 12/10/18 at 12:00 Hydralazine HCl (Apresoline) 10 mg Q6H PRN IV SBP>160 Last administered on 12/09/18at 16:20; Admin Dose 10 MG; Start 12/09/18 at 14:30 Meds reviewed: Yes Allergies Coded Allergies: No Known Allergies (Verified Allergy, Unknown, 11/09/18) Allergies Reviewed: Yes Labs/Studies Labs Reviewed: Reviewed by anesthesiologist Result Diagram: 12/08/18 1253 12/09/18 0520 Laboratory Tests 12/09/18 05:20 test: N/A (SR) Studies: ECG, CXR (No evidence for active cardiopulmonary disease.) Pre-procedure Exam Last vitals Vital Signs Date Temp Pulse Resp B/P (MAP) Pulse Ox O2 O2 Flow FiO2 Time Delivery Rate 12/09/18 96 18 183/95 98 Room Air 17:09 (124) 12/09/18 99.8 16:20 Airway: Adequate mouth opening Mallampati: Mallampati II Teeth: Normal Lung: Normal Heart: Normal ASA Physical Status ASA physical status: 2 Emergency: None Planned Anesthetic General/MAC: ETT Pre-operative Attestations Prior to commencing anesthesia and surgery, the patient was re-evaluated, there was verification of: *The patient's identity *The results of appropriate recent lab work and preoperative vital signs *The above evaluation not changing prior to induction *Anesthetic plan, risk benefits, alternative and complications discussed with patient/family; questions answered; patient/family understands, accepts and wishes to proceed. ANN VASQUEZ Dec 09, 2018 17:28
[2018-12-09] MEDS ORDERED: PROPOFOL 20 ML ONE (18:20)
[2018-12-09] MEDS ORDERED: ROCURONIUM 50 MG INJ ONE (18:20)
[2018-12-09] MEDS ORDERED: ONDANSETRON 4 MG INJ ONE (18:20)
[2018-12-09] MEDS ORDERED: LIDOCAINE 2% (SDV) 5 ML INJ ONE (18:20)
[2018-12-09] MEDS ORDERED: SUGAMMADEX SODIUM 200 MG/2 ML VIAL IV ONE (18:41)
--- NOTE | 2018-12-09 19:04 | OPR ---
Date/Time of Note Date/Time of Note DATE: 12/09/18 TIME: 18:58 Operative Report Procedure Date: Dec 09, 2018 Preoperative Diagnosis Right ureteral stone with hydronephrosis and renal failure Postoperative Diagnosis Same Operation/Procedure Performed Cystoscopy and insertion of right ureteral JJ stent 6 Stateless by 24 cm long Surgeon see signature line [employer]bestos Cloth Inspector Walt Vega Anesthesia Type: general Anesthesiologist: PAPITO KHAN DO Estimated Blood Loss: none Transfusion none Specimen None Grafts/Implants none Complications none Pt Condition Post Procedure: stable Disposition: PACU Indications Right ureteral stone with obstruction and hydronephrosis. Patient has only one good functioning right kidney. His left kidney has no parenchyma and is obstructed. Patient is an renal failure because of the obstruction by the stone of his good kidney. Procedure Description The patient was brought to the operating room and given general endotracheal anesthesia. He was then positioned in the lithotomy position. He did not receive antibiotic as he has been already on the cefepime. The genital area was then prepped and draped in the usual sterile manner. Timeout was done and the patient was identified by his name, birthdate, the procedure and the site of the procedure. #21 Stateless cystoscope sheath was then introduced under direct vision through the penile urethra all the way to the bladder. He did have a few stone fragments in the bladder that drained out. Spot films were taken between the pubic bone all the way up to the right side kidney. Then a 5 Stateless open ended ureteral catheter was inserted through the working channel of the scope and into the right ureter. A 0.035 zip wire was advanced through the open ended into the right ureter and all the way up to the kidney. Then the open ended was removed leaving the zip wire in place. Then a 6 Stateless by 24 cm long JJ stent was advanced on the wire and had it proximal and coiled in the kidney and the distal and coiled into the bladder. The distal and has a string that was tied and cut about 1 inch from the tip of the stent. A #16 Stateless Bustos catheter was then inserted into the bladder and connected to a drainage bag. The patient tolerated the procedure well and was transferred to the recovery room in a stable and satisfactory condition. MONICA PADGETT MD Dec 09, 2018 19:04
--- NOTE | 2018-12-09 19:04 | PAC ---
Date/Time of Note Date/Time of Note DATE: 12/09/18 TIME: 19:03 Post-Anesthesia Notes Post-Anesthesia Note Last documented vital signs Vital Signs Date Temp Pulse Resp B/P (MAP) Pulse Ox O2 O2 Flow FiO2 Time Delivery Rate 12/09/18 98 80 18 158/85 98 Room Air 1900 12/09/18 99.8 16:20 Activity: WNL Respiratory function: WNL Cardiovascular function: WNL Mental status: Baseline Pain reasonably controlled: Yes Hydration appropriate: Yes Nausea/Vomiting absent: Yes PAPITO KHAN DO Dec 09, 2018 19:04
[2018-12-09] MEDS ORDERED: HYDROmorphONE 1 MG/5 ML IV SYRINGE IV PRN (19:30)
[2018-12-09] MEDS ORDERED: ONDANSETRON 4 MG INJ IV PRN (19:30)
[2018-12-09] MEDS ORDERED: hydrALAzine 20 MG INJ IV PRN (19:30)
[2018-12-09] MEDS ORDERED: LABETALOL HCL 20MG INJ IV PRN (19:30)
[2018-12-09] MEDS: HYDROmorphONE 1 MG/5 ML IV SYRINGE IV PRN ×2 (19:33→19:46)
[2018-12-10] VITALS (12 sets, daily range): BP systolic 142–166; BP diastolic 74–90; PULSE 80–100; RESP 18–20
[2018-12-10] MEDS: SOD CHLORIDE 0.9% 1,000 ML IV SCH ×2 (04:00→14:00)
[2018-12-10] MEDS: morphine 2 MG INJ IV PRN ×3 (04:42→21:04)
[2018-12-10] MEDS: GABAPENTIN 100 MG CAP PO SCH ×3 (08:15→21:01)
[2018-12-10] MEDS: CALCIUM ACETATE 667 MG CAP PO SCH ×3 (08:15→17:55)
[2018-12-10] MEDS: METOPROLOL (XL) 25 MG TAB PO SCH (08:16)
--- NOTE | 2018-12-10 11:27 | CONS ---
Consult Date/Type/Reason Admit Date/Time Dec 08, 2018 at 09:15 Initial Consult Date 12/08/18 Type of Consultation: Urology Reason for Consultation Right hydronephrosis and right ureteral stone. Requesting Provider: ARLENE MALLOY MD Date/Time of Note DATE: 12/10/18 TIME: 11:22 Subjective Patient complaining of pain in both knees. He reports having a history of gout. He was taking allopurinol but he stopped it over a month ago stating it causes him stomach ache. He was asking about colchicine and that confirmed that he is had a problem with gout in the past. And that could be a major reason for his kidney stone formation as the stones are radiolucent. Objective Vitals Vital Signs Date Temp Pulse Resp B/P (MAP) Pulse Ox O2 O2 Flow FiO2 Time Delivery Rate 12/10/18 101.4 100 20 161/90 96 Nasal 11:13 (113) Cannula 12/09/18 3.0 20:20 Intake and Output 12/09/18 12/09/18 12/10/18 1515:00 23:00 07:00 IntakeIntake Total 790 ml 2000 ml 1550 ml OutputOutput Total 1502 ml 4000 ml BalanceBalance 790 ml 498 ml -2450 ml Exam Bustos catheter is draining clear urine. His renal function has improved a little. He has a good urine output 5500ml/24 hours Results/Medications Result Diagram: 12/10/18 0541 12/10/18 0541 Results 24 hrs Laboratory Tests Test 12/10/18 05:41 White Blood Count 10.1 Red Blood Count 4.46 L Hemoglobin 13.6 L Hematocrit 41.5 L Mean Corpuscular Volume 93.0 Mean Corpuscular Hemoglobin 30.5 Mean Corpuscular Hemoglobin Concent 32.8 Red Cell Distribution Width 13.1 Platelet Count 137 L Mean Platelet Volume 10.1 Immature Granulocytes % 0.500 H Neutrophils % 80.4 H Lymphocytes % 8.9 L Monocytes % 9.8 Eosinophils % 0.2 Basophils % 0.2 Nucleated Red Blood Cells % 0.0 Immature Granulocytes # 0.050 H Neutrophils # 8.2 H Lymphocytes # 0.9 Monocytes # 1.0 H Eosinophils # 0.0 Basophils # 0.0 Nucleated Red Blood Cells # 0.0 Sodium Level 140 Potassium Level 5.2 H Chloride Level 110 Carbon Dioxide Level 20 L Anion Gap 10 Blood Urea Nitrogen 51 H Creatinine 8.62 H Est Glomerular Filtrat Rate mL/min 6 L Glucose Level 140 # Uric Acid 10.2 H Calcium Level 8.7 Phosphorus Level 4.7 Home Meds Reported Medications Gabapentin* (Gabapentin*) 300 Mg Capsule, 300 MG PO TID, #90 CAP 11/09/18 Losartan Potassium* (Losartan Potassium*) 100 Mg Tablet, 100 MG PO DAILY, TAB 11/09/18 Medications Current Medications Sodium Chloride 1,000 ml @ 100 mls/hr Q10H IV Last administered on 12/09/18at 23:58; Admin Dose 100 MLS/HR; Start 12/08/18 at 12:00 Morphine Sulfate (morphine) 2 mg Q4H PRN IV SEVERE PAIN LEVEL 7-10 Last administered on 12/10/18at 08:27; Admin Dose 2 MG; Start 12/08/18 at 12:00 Hydralazine HCl (Apresoline) 25 mg Q8 PO Last administered on 12/10/18at 05:40; Admin Dose 25 MG; Start 12/08/18 at 17:00 Gabapentin (Neurontin) 100 mg TID PO Last administered on 12/10/18at 08:15; Admin Dose 100 MG; Start 12/08/18 at 21:00 Acetaminophen (Tylenol Tab) 500 mg Q4H PRN PO MILD PAIN(1-3)OR ELEVATED TEMP; Start 12/08/18 at 22:30 Ondansetron HCl (Zofran Inj) 4 mg Q6H PRN IV NAUSEA AND/OR VOMITING; Start 12/08/18 at 22:30 Metoprolol Succinate (Toprol Xl) 25 mg DAILY PO Last administered on 12/10/18at 08:16; Admin Dose 25 MG; Start 12/09/18 at 12:00 Pantoprazole (Protonix Iv) 40 mg DAILY@06 IV ; Start 12/10/18 at 12:00 Hydralazine HCl (Apresoline) 10 mg Q6H PRN IV SBP>160 Last administered on 12/09/18at 16:20; Admin Dose 10 MG; Start 12/09/18 at 14:30 Cefepime HCl 50 ml @ 100 mls/hr Q24H IVPB ; Start 12/10/18 at 13:00 Calcium Acetate (Phoslo) 667 mg WITH MEALS PO Last administered on 12/10/18at 08:15; Admin Dose 667 MG; Start 12/10/18 at 07:55 Assessment/Plan Hospital Course (Demo Recall) 63-year-old male presented initially to [facility] because of flank pain. He underwent a CT scan of the abdomen and pelvis and was diagnosed with right ureteral stone with hydronephrosis. He was transferred to [facility] as they were not able to get a urologist to see him at the other hospital. Patient is known to have a history of kidney stone. His c reatinine is high and has increased from what it was at the other hospital. He underwent a repeat CT scan here and that showed: Moderate to severe right hydroureter nephrosis with stranding of surrounding perinephric and pararenal fat. 12 mm obstructing calculus proximal ureter. 6 mm stone in mid to distal ureter. Preservation of right renal parenchyma. Multiple nonobstructing right renal calculi. Severe left hydroureter nephrosis with severe atrophy of the parenchyma. Obstructing stone mid to distal ureter with small nonobstructing stone fragments in the hydronephrotic kidney. Diverticulosis. Right basilar atelectasis. Fatty liver. Upon reviewing the CT scan the left kidney has no parenchyma that is worth saving. Patient depends only on his right kidney which is obstructed by the stone. He underwent a cystoscopy and insertion of right ureteral stent to drain his kidney on 12/09/2018. Patient states that he has a history of gout and has been on allopurinol which he stopped about a month ago stating it causes him stomach ache. It appears that he is been on colchicine in the past. He has bilateral knee pain today and he is asking for the colchicine. I would keep the Bustos catheter in place to prevent any retention and allow his kidney function to improve. The nurse will contact Dr. Nieto in regard to the gout treatment MONICA PADGETT MD Dec 10, 2018 11:27
--- NOTE | 2018-12-10 11:40 | PN ---
Date/Time of Note Date/Time of Note DATE: 12/10/18 TIME: 11:39 Assessment/Plan VTE Prophylaxis Risk score (from Ns)>0 risk: 6 SCD applied (from Nsg): Yes Pharmacological prophylaxis: LMWH Lines/Catheters IV [facility] Type (from [facility]): Peripheral IV Urinary Cath still in place: Yes Reason Cath still needed: skin wounds contaminated by urine Assessment/Plan Hospital Course 1. Severe right hydroureter with multiple obstructing ureteral stones and preservation of right renal parenchyma and multiple nonobstructive right renal calculi. 2. Severe left hydroureteronephrosis with severe atrophy of parenchyma and obstructive stone mid to distal ureter. 3. History of hypertension. 4. Possible infected stone versus right pyelonephritis. Patient complain of pain in left knee that may be related to gout, will give colchicine Result Diagram: 12/10/1841 12/10/18 0541 Results 24hrs Laboratory Tests Test 12/10/18 05:41 White Blood Count 10.1 Red Blood Count 4.46 L Hemoglobin 13.6 L Hematocrit 41.5 L Mean Corpuscular Volume 93.0 Mean Corpuscular Hemoglobin 30.5 Mean Corpuscular Hemoglobin Concent 32.8 Red Cell Distribution Width 13.1 Platelet Count 137 L Mean Platelet Volume 10.1 Immature Granulocytes % 0.500 H Neutrophils % 80.4 H Lymphocytes % 8.9 L Monocytes % 9.8 Eosinophils % 0.2 Basophils % 0.2 Nucleated Red Blood Cells % 0.0 Immature Granulocytes # 0.050 H Neutrophils # 8.2 H Lymphocytes # 0.9 Monocytes # 1.0 H Eosinophils # 0.0 Basophils # 0.0 Nucleated Red Blood Cells # 0.0 Sodium Level 140 Potassium Level 5.2 H Chloride Level 110 Carbon Dioxide Level 20 L Anion Gap 10 Blood Urea Nitrogen 51 H Creatinine 8.62 H Est Glomerular Filtrat Rate mL/min 6 L Glucose Level 140 # Uric Acid 10.2 H Calcium Level 8.7 Phosphorus Level 4.7 Subjective 24 Hr Interval Summary Free Text/Dictation Patient complains of pain in left knee that he attributes to gout Exam/Review of Systems Exam Vitals Vital Signs Date Temp Pulse Resp B/P (MAP) Pulse Ox O2 O2 Flow FiO2 Time Delivery Rate 12/10/18 101.4 100 20 161/90 96 Nasal 11:13 (113) Cannula 12/09/18 3.0 20:20 Intake and Output 12/09/18 12/09/18 12/10/18 1515:00 23:00 07:00 IntakeIntake Total 790 ml 2000 ml 1550 ml OutputOutput Total 1502 ml 4000 ml BalanceBalance 790 ml 498 ml -2450 ml Constitutional: well developed Head: normocephalic, atraumatic Neck: supple Respiratory: clear to auscultation Cardiovascular: regular rate and rhythm Gastrointestinal: soft, non-tender Extremities: tenderness Results Results 24hrs Laboratory Tests Test 12/10/18 05:41 White Blood Count 10.1 Red Blood Count 4.46 L Hemoglobin 13.6 L Hematocrit 41.5 L Mean Corpuscular Volume 93.0 Mean Corpuscular Hemoglobin 30.5 Mean Corpuscular Hemoglobin Concent 32.8 Red Cell Distribution Width 13.1 Platelet Count 137 L Mean Platelet Volume 10.1 Immature Granulocytes % 0.500 H Neutrophils % 80.4 H Lymphocytes % 8.9 L Monocytes % 9.8 Eosinophils % 0.2 Basophils % 0.2 Nucleated Red Blood Cells % 0.0 Immature Granulocytes # 0.050 H Neutrophils # 8.2 H Lymphocytes # 0.9 Monocytes # 1.0 H Eosinophils # 0.0 Basophils # 0.0 Nucleated Red Blood Cells # 0.0 Sodium Level 140 Potassium Level 5.2 H Chloride Level 110 Carbon Dioxide Level 20 L Anion Gap 10 Blood Urea Nitrogen 51 H Creatinine 8.62 H Est Glomerular Filtrat Rate mL/min 6 L Glucose Level 140 # Uric Acid 10.2 H Calcium Level 8.7 Phosphorus Level 4.7 Medications Medication Current Medications Sodium Chloride 1,000 ml @ 100 mls/hr Q10H IV Last administered on 12/09/18at 23:58; Admin Dose 100 MLS/HR; Start 12/08/18 at 12:00 Morphine Sulfate (morphine) 2 mg Q4H PRN IV SEVERE PAIN LEVEL 7-10 Last administered on 12/10/18at 08:27; Admin Dose 2 MG; Start 12/08/18 at 12:00 Hydralazine HCl (Apresoline) 25 mg Q8 PO Last administered on 12/10/18at 05:40; Admin Dose 25 MG; Start 12/08/18 at 17:00 Gabapentin (Neurontin) 100 mg TID PO Last administered on 12/10/18at 08:15; Admin Dose 100 MG; Start 12/08/18 at 21:00 Acetaminophen (Tylenol Tab) 500 mg Q4H PRN PO MILD PAIN(1-3)OR ELEVATED TEMP; Start 12/08/18 at 22:30 Ondansetron HCl (Zofran Inj) 4 mg Q6H PRN IV NAUSEA AND/OR VOMITING; Start 12/08/18 at 22:30 Metoprolol Succinate (Toprol Xl) 25 mg DAILY PO Last administered on 12/10/18at 08:16; Admin Dose 25 MG; Start 12/09/18 at 12:00 Pantoprazole (Protonix Iv) 40 mg DAILY@06 IV ; Start 12/10/18 at 12:00 Hydralazine HCl (Apresoline) 10 mg Q6H PRN IV SBP>160 Last administered on 12/09/18at 16:20; Admin Dose 10 MG; Start 12/09/18 at 14:30 Cefepime HCl 50 ml @ 100 mls/hr Q24H IVPB ; Start 12/10/18 at 13:00 Calcium Acetate (Phoslo) 667 mg WITH MEALS PO Last administered on 12/10/18at 08:15; Admin Dose 667 MG; Start 12/10/18 at 07:55 YESENIA BUENO Dec 10, 2018 11:40
[2018-12-10] MEDS: PANTOPRAZOLE 40 MG INJ IV SCH (12:00)
--- NOTE | 2018-12-10 12:26 | CONS ---
Assessment/Plan Assessment/Plan Hospital Course (Demo Recall) 1. Acute on chronic renal failure likely secondary to severe hydronephrosis, perinephric fluid stranding, 1.5 cm obstructing stone at the right ureteropelvic junction, additional 7 mm calculus within the right upper ureter, punctate 2 mm calculus in right vesicoureteral junction. The patient also has severe chronic left hydronephrosis and thinning of the renal cortex, calcified 9 mm calculus within the left mid ureter. 2. Urinary obstruction likely secondary to kidney stone. 3. Hypertension, uncontrolled. 4. Obesity 5. Normocytic hypochromic anemia 6. UTI 7. Hyperphosphatemia / BO 8. Diverticulosis. 9. Fatty liver 10. Gout Assessment/Plan (Daily) - colchicine cannot given for a long time with BO -s/p urinary stent -has perkins -c/w phos binder -better hypertension control -GI prophylaxis start protonix -c/w gentle IV fluids, IV antibiotics. - UA positive for UTI, -urine culture pending. -c/w Perkins is already in place. -Dr. Stockton urology consult is appreciated Consultation Date/Type/Reason Admit Date/Time Dec 08, 2018 at 09:15 Initial Consult Date 12/08/18 Type of Consult nephrology Requesting Provider: ARLENE MALLOY MD Date/Time of Note DATE: 12/10/18 TIME: 12:21 24 HR Interval Summary Free Text/Dictation bilateral knee pain Exam/Review of Systems Exam Vitals Vital Signs Date Temp Pulse Resp B/P (MAP) Pulse Ox O2 O2 Flow FiO2 Time Delivery Rate 12/10/18 94 12:11 12/10/18 101.4 20 161/90 96 Nasal 11:13 (113) Cannula 12/09/18 3.0 20:20 Intake and Output 12/09/18 12/09/18 12/10/18 1515:00 23:00 07:00 IntakeIntake Total 790 ml 2000 ml 1550 ml OutputOutput Total 1502 ml 4000 ml BalanceBalance 790 ml 498 ml -2450 ml Constitutional: alert, oriented Respiratory: clear to auscultation Cardiovascular: regular rate and rhythm Gastrointestinal: soft Genitourinary - Male: other (perkins) Results Result Diagram: 12/10/18 0541 12/10/18 0541 Results 24hrs Laboratory Tests Test 12/10/18 05:41 White Blood Count 10.1 Red Blood Count 4.46 L Hemoglobin 13.6 L Hematocrit 41.5 L Mean Corpuscular Volume 93.0 Mean Corpuscular Hemoglobin 30.5 Mean Corpuscular Hemoglobin Concent 32.8 Red Cell Distribution Width 13.1 Platelet Count 137 L Mean Platelet Volume 10.1 Immature Granulocytes % 0.500 H Neutrophils % 80.4 H Lymphocytes % 8.9 L Monocytes % 9.8 Eosinophils % 0.2 Basophils % 0.2 Nucleated Red Blood Cells % 0.0 Immature Granulocytes # 0.050 H Neutrophils # 8.2 H Lymphocytes # 0.9 Monocytes # 1.0 H Eosinophils # 0.0 Basophils # 0.0 Nucleated Red Blood Cells # 0.0 Sodium Level 140 Potassium Level 5.2 H Chloride Level 110 Carbon Dioxide Level 20 L Anion Gap 10 Blood Urea Nitrogen 51 H Creatinine 8.62 H Est Glomerular Filtrat Rate mL/min 6 L Glucose Level 140 # Uric Acid 10.2 H Calcium Level 8.7 Phosphorus Level 4.7 Medications Medication Current Medications Sodium Chloride 1,000 ml @ 100 mls/hr Q10H IV Last administered on 12/09/18at 23:58; Admin Dose 100 MLS/HR; Start 12/08/18 at 12:00 Morphine Sulfate (morphine) 2 mg Q4H PRN IV SEVERE PAIN LEVEL 7-10 Last administered on 12/10/18at 08:27; Admin Dose 2 MG; Start 12/08/18 at 12:00 Hydralazine HCl (Apresoline) 25 mg Q8 PO Last administered on 12/10/18at 05:40; Admin Dose 25 MG; Start 12/08/18 at 17:00 Gabapentin (Neurontin) 100 mg TID PO Last administered on 12/10/18at 08:15; Admin Dose 100 MG; Start 12/08/18 at 21:00 Acetaminophen (Tylenol Tab) 500 mg Q4H PRN PO MILD PAIN(1-3)OR ELEVATED TEMP; Start 12/08/18 at 22:30 Ondansetron HCl (Zofran Inj) 4 mg Q6H PRN IV NAUSEA AND/OR VOMITING; Start 12/08/18 at 22:30 Metoprolol Succinate (Toprol Xl) 25 mg DAILY PO Last administered on 12/10/18at 08:16; Admin Dose 25 MG; Start 12/09/18 at 12:00 Pantoprazole (Protonix Iv) 40 mg DAILY@06 IV ; Start 12/10/18 at 12:00 Hydralazine HCl (Apresoline) 10 mg Q6H PRN IV SBP>160 Last administered on 12/09/18at 16:20; Admin Dose 10 MG; Start 12/09/18 at 14:30 Cefepime HCl 50 ml @ 100 mls/hr Q24H IVPB ; Start 12/10/18 at 13:00 Calcium Acetate (Phoslo) 667 mg WITH MEALS PO Last administered on 12/10/18at 08:15; Admin Dose 667 MG; Start 12/10/18 at 07:55 Colchicine (Colchicine) 0.6 mg DAILY PO ; Start 12/11/18 at 09:00 TONY ROB Dec 10, 2018 12:26
[2018-12-10] MEDS ORDERED: SODIUM POLYSTYRENE 15 GM KIT (POWDER + SORBITOL) PO ONE (12:30)
[2018-12-10] MEDS: CEFEPIME 1GM/50 ML (PMX) 50 ML IVPB SCH (13:02)
[2018-12-10] MEDS: hydrALAzine 20 MG INJ IV PRN (13:03)
[2018-12-10] MEDS: ACETAMINOPHEN 500 MG TAB PO PRN (13:03)
[2018-12-10] MEDS ORDERED: COLCHICINE 0.6 MG TAB PO SCH (13:30)
[2018-12-10] MEDS ORDERED: HYDROCODONE/APAP (5/325) TAB PO PRN (15:30)
[2018-12-10] MEDS: COLCHICINE 0.6 MG TAB PO SCH (16:26)
[2018-12-11] VITALS (11 sets, daily range): BP systolic 131–165; BP diastolic 75–93; PULSE 78–106; RESP 17–18
[2018-12-11] MEDS: morphine 2 MG INJ IV PRN ×2 (03:10→20:08)
[2018-12-11] MEDS: PANTOPRAZOLE 40 MG INJ IV SCH (06:06)
[2018-12-11] MEDS: GABAPENTIN 100 MG CAP PO SCH ×3 (07:48→20:08)
[2018-12-11] MEDS: CALCIUM ACETATE 667 MG CAP PO SCH ×3 (07:48→17:09)
[2018-12-11] MEDS: ACETAMINOPHEN 500 MG TAB PO PRN ×2 (07:48→15:24)
[2018-12-11] MEDS: SOD CHLORIDE 0.9% 1,000 ML IV SCH ×3 (08:39→20:00)
[2018-12-11] MEDS: COLCHICINE 0.6 MG TAB PO SCH (08:39)
[2018-12-11] MEDS: METOPROLOL (XL) 50 MG TAB PO SCH (08:39)
[2018-12-11] MEDS ORDERED: COLCHICINE 0.6 MG TAB PO SCH (09:00)
--- NOTE | 2018-12-11 11:48 | PN ---
Date/Time of Note Date/Time of Note DATE: 12/11/18 TIME: 11:48 Assessment/Plan VTE Prophylaxis Risk score (from Ns)>0 risk: 6 SCD applied (from Ns): Yes Pharmacological prophylaxis: LMWH Lines/Catheters IV Catheter Type (from [facility] [place]): Peripheral IV Urinary Cath still in place: Yes Reason Cath still needed: skin wounds contaminated by urine Assessment/Plan Hospital Course 1. Severe right hydroureter with multiple obstructing ureteral stones and preservation of right renal parenchyma and multiple nonobstructive right renal calculi. 2. Severe left hydroureteronephrosis with severe atrophy of parenchyma and obstructive stone mid to distal ureter. 3. History of hypertension. 4. Possible infected stone versus right pyelonephritis. Patient complain of pain in left knee that may be related to gout, will give colchicine Result Diagram: 12/10/18 0541 12/11/18 0555 Results 24hrs Laboratory Tests Test 12/10/18 18:09 12/11/18 00:24 12/11/18 05:55 Troponin I 0.013 < 0.012 0.016 Sodium Level 139 Potassium Level 4.7 Chloride Level 107 Carbon Dioxide Level 22 Anion Gap 10 Blood Urea Nitrogen 36 #H Creatinine 4.07 #H Est Glomerular Filtrat Rate mL/min 15 L Glucose Level 115 Calcium Level 8.7 Total Bilirubin 0.5 Direct Bilirubin 0.00 Indirect Bilirubin 0.5 Aspartate Amino Transf (AST/SGOT) 20 Alanine Aminotransferase (ALT/SGPT) 20 Alkaline Phosphatase 58 Total Protein 6.9 Albumin 3.5 Globulin 3.40 H Albumin/Globulin Ratio 1.02 Subjective 24 Hr Interval Summary Free Text/Dictation Patient still have pain in left knee Exam/Review of Systems Exam Vitals Vital Signs Date Temp Pulse Resp B/P (MAP) Pulse Ox O2 O2 Flow FiO2 Time Delivery Rate 12/11/18 92 08:11 12/11/18 99.7 17 145/83 94 07:58 (103) 12/11/18 Nasal 2.0 07:31 Cannula Intake and Output 12/10/18 12/10/18 12/11/18 1515:00 23:00 07:00 IntakeIntake Total 2100 ml 2500 ml OutputOutput Total 3800 ml 1575 ml BalanceBalance -1700 ml 925 ml Constitutional: well developed Head: normocephalic, atraumatic Neck: supple Respiratory: diminished breath sounds Cardiovascular: regular rate and rhythm Gastrointestinal: soft, non-tender Extremities: normal pulses Results Results 24hrs Laboratory Tests Test 12/10/18 18:09 12/11/18 00:24 12/11/18 05:55 Troponin I 0.013 < 0.012 0.016 Sodium Level 139 Potassium Level 4.7 Chloride Level 107 Carbon Dioxide Level 22 Anion Gap 10 Blood Urea Nitrogen 36 #H Creatinine 4.07 #H Est Glomerular Filtrat Rate mL/min 15 L Glucose Level 115 Calcium Level 8.7 Total Bilirubin 0.5 Direct Bilirubin 0.00 Indirect Bilirubin 0.5 Aspartate Amino Transf (AST/SGOT) 20 Alanine Aminotransferase (ALT/SGPT) 20 Alkaline Phosphatase 58 Total Protein 6.9 Albumin 3.5 Globulin 3.40 H Albumin/Globulin Ratio 1.02 Medications Medication Current Medications Sodium Chloride 1,000 ml @ 100 mls/hr Q10H IV Last administered on 12/11/18 00:00; Admin Dose 100 MLS/HR; Start 12/08/18 at 12:00 Morphine Sulfate (morphine) 2 mg Q4H PRN IV SEVERE PAIN LEVEL 7-10 Last administered on 12/11/18at 03:10; Admin Dose 2 MG; Start 12/08/18 at 12:00 Hydralazine HCl (Apresoline) 25 mg Q8 PO Last administered on 12/11/18at 06:06; Admin Dose 25 MG; Start 12/08/18 at 17:00 Gabapentin (Neurontin) 100 mg TID PO Last administered on 12/11/18at 07:48; Adm in Dose 100 MG; Start 12/08/18 at 21:00 Acetaminophen (Tylenol Tab) 500 mg Q4H PRN PO MILD PAIN(1-3)OR ELEVATED TEMP Last administered on 12/11/18at 07:48; Admin Dose 500 MG; Start 12/08/18 at 22:30 Ondansetron HCl (Zofran Inj) 4 mg Q6H PRN IV NAUSEA AND/OR VOMITING; Start 12/08/18 at 22:30 Pantoprazole (Protonix Iv) 40 mg DAILY@06 IV Last administered on 12/11/18at 06:06; Admin Dose 40 MG; Start 12/10/18 at 12:00 Hydralazine HCl (Apresoline) 10 mg Q6H PRN IV SBP>160 Last administered on 12/10/18 13:03; Admin Dose 10 MG; Start 12/09/18 at 14:30 Cefepime HCl 50 ml @ 100 mls/hr Q24H IVPB Last administered on 12/10/18 13:02; Admin Dose 100 MLS/HR; Start 12/10/18 at 13:00 Calcium Acetate (Phoslo) 667 mg WITH MEALS PO Last administered on 12/11/18 07:48; Admin Dose 667 MG; Start 12/10/18 at 07:55 Metoprolol Succinate (Toprol Xl) 50 mg DAILY PO Last administered on 12/11/18 08:39; Admin Dose 50 MG; Start 12/11/18 at 09:00 Ibuprofen (Motrin) 600 mg BID PRN PO MILD PAIN LEVEL 1-3; Start 12/10/18 at 15:30 Colchicine (Colchicine) 0.6 mg DAILY PO Last administered on 12/11/18 08:39; Admin Dose 0.6 MG; Start 12/11/18 at 09:00 Acetaminophen/ Hydrocodone Bitart ([place] (5/325)) 1 tab Q4H PRN PO MODERATE PAIN LEVEL 4-6; Start 12/10/18 at 15:30 YESENIA BUENO Dec 11, 2018 11:48
[2018-12-11] MEDS: CEFEPIME 1GM/50 ML (PMX) 50 ML IVPB SCH (12:22)
--- NOTE | 2018-12-11 16:23 | CONS ---
Assessment/Plan Assessment/Plan Hospital Course (Demo Recall) 1. Acute on chronic renal failure likely secondary to severe hydronephrosis, perinephric fluid stranding, 1.5 cm obstructing stone at the right ureteropelvic junction, additional 7 mm calculus within the right upper ureter, s/p cysto and jj stent 2. Urinary obstruction likely secondary to kidney stone. 3. Hypertension, 4. Obesity 5. Normocytic hypochromic anemia 6. UTI 7.knee effusion 8. Diverticulosis. 9. Fatty liver 10. Gout plan ck bmp iv fluid Consultation Date/Type/Reason Admit Date/Time Dec 08, 2018 at 09:15 Initial Consult Date 12/08/18 Reason for Consultation ckd f/u s/u cysto Requesting Provider: ARLENE MALLOY MD Date/Time of Note DATE: 12/11/18 TIME: 16:21 Exam/Review of Systems Exam Vitals Vital Signs Date Temp Pulse Resp B/P (MAP) Pulse Ox O2 O2 Flow FiO2 Time Delivery Rate 12/11/18 99.6 78 18 149/79 96 Room Air 15:11 (102) 12/11/18 2.0 07:31 Intake and Output 12/10/18 12/10/18 12/11/18 1515:00 23:00 07:00 IntakeIntake Total 2100 ml 2500 ml OutputOutput Total 3800 ml 1575 ml BalanceBalance -1700 ml 925 ml Respiratory: clear to auscultation Cardiovascular: regular rate and rhythm Gastrointestinal: soft Musculoskeletal: nl extremities to inspection Extremities: normal pulses Results Result Diagram: 12/10/18 0541 12/11/18 0555 Results 24hrs Laboratory Tests Test 12/10/18 18:09 12/11/18 00:24 12/11/18 05:55 Troponin I 0.013 < 0.012 0.016 Sodium Level 139 Potassium Level 4.7 Chloride Level 107 Carbon Dioxide Level 22 Anion Gap 10 Blood Urea Nitrogen 36 #H Creatinine 4.07 #H Est Glomerular Filtrat Rate mL/min 15 L Glucose Level 115 Calcium Level 8.7 Total Bilirubin 0.5 Direct Bilirubin 0.00 Indirect Bilirubin 0.5 Aspartate Amino Transf (AST/SGOT) 20 Alanine Aminotransferase (ALT/SGPT) 20 Alkaline Phosphatase 58 Total Protein 6.9 Albumin 3.5 Globulin 3.40 H Albumin/Globulin Ratio 1.02 Medications Medication Current Medications Sodium Chloride 1,000 ml @ 100 mls/hr Q10H IV Last administered on 12/11/18 00:00; Admin Dose 100 MLS/HR; Start 12/08/18 at 12:00 Morphine Sulfate (morphine) 2 mg Q4H PRN IV SEVERE PAIN LEVEL 7-10 Last administered on 12/11/18 03:10; Admin Dose 2 MG; Start 12/08/18 at 12:00 Hydralazine HCl (Apresoline) 25 mg Q8 PO Last administered on 12/11/18 13:21; Admin Dose 25 MG; Start 12/08/18 at 17:00 Gabapentin (Neurontin) 100 mg TID PO Last administered on 12/11/18 12:22; Admin Dose 100 MG; Start 12/08/18 at 21:00 Acetaminophen (Tylenol Tab) 500 mg Q4H PRN PO MILD PAIN(1-3)OR ELEVATED TEMP Last administered on 12/11/18 15:24; Admin Dose 500 MG; Start 12/08/18 at 22:30 Ondansetron HCl (Zofran Inj) 4 mg Q6H PRN IV NAUSEA AND/OR VOMITING; Start 12/08/18 at 22:30 Pantoprazole (Protonix Iv) 40 mg DAILY@06 IV Last administered on 12/11/18 06:06; Admin Dose 40 MG; Start 12/10/18 at 12:00 Hydralazine HCl (Apresoline) 10 mg Q6H PRN IV SBP>160 Last administered on 12/10/18 13:03; Admin Dose 10 MG; Start 12/09/18 at 14:30 Cefepime HCl 50 ml @ 100 mls/hr Q24H IVPB Last administered on 12/11/18 12:22; Admin Dose 100 MLS/HR; Start 12/10/18 at 13:00 Calcium Acetate (Phoslo) 667 mg WITH MEALS PO Last administered on 12/11/18 12:22; Admin Dose 667 MG; Start 12/10/18 at 07:55 Metoprolol Succinate (Toprol Xl) 50 mg DAILY PO Last administered on 12/11/18 08:39; Admin Dose 50 MG; Start 12/11/18 at 09:00 Ibuprofen (Motrin) 600 mg BID PRN PO MILD PAIN LEVEL 1-3; Start 12/10/18 at 15:30 Colchicine (Colchicine) 0.6 mg DAILY PO Last administered on 12/11/18at 08:39; Admin Dose 0.6 MG; Start 12/11/18 at 09:00 Acetaminophen/ Hydrocodone Bitart ([place] (5/325)) 1 tab Q4H PRN PO MODERATE PAIN LEVEL 4-6; Start 12/10/18 at 15:30 NEYMAR HICKS MD Dec 11, 2018 16:23
[2018-12-11] MEDS: ZOLPIDEM 5 MG TAB PO PRN (21:57)
[2018-12-12] VITALS (10 sets, daily range): BP systolic 137–159; BP diastolic 74–87; PULSE 79–101; RESP 16–18
[2018-12-12] MEDS: PANTOPRAZOLE 40 MG INJ IV SCH (05:43)
[2018-12-12] MEDS: morphine 2 MG INJ IV PRN ×2 (05:43→20:12)
[2018-12-12] MEDS: SOD CHLORIDE 0.9% 1,000 ML IV SCH ×2 (06:00→23:52)
[2018-12-12] MEDS: CALCIUM ACETATE 667 MG CAP PO SCH (08:01)
[2018-12-12] MEDS: GABAPENTIN 100 MG CAP PO SCH ×3 (08:01→20:10)
[2018-12-12] MEDS: COLCHICINE 0.6 MG TAB PO SCH (08:02)
[2018-12-12] MEDS: METOPROLOL (XL) 50 MG TAB PO SCH (08:02)
--- NOTE | 2018-12-12 10:51 | CONS ---
Assessment/Plan Assessment/Plan Assessment/Plan (Daily) 63 y/o with 1. Acute on chronic renal failure ( baseline creatinine is 2.4) likely secondary to severe hydronephrosis, perinephric fluid stranding, 1.5 cm obstructing stone at the right ureteropelvic junction, additional 7 mm calculus within the right upper ureter, punctate 2 mm calculus in right vesicoureteral junction. The patient also has severe chronic left hydronephrosis and thinning of the renal cortex, calcified 9 mm calculus within the left mid ureter. Status post right ureteral stent placement on 0 12/09 status post relief of obstruction creatinine function has improved but not yet back to baseline 2. Urinary obstruction likely secondary to kidney stone. 3. Hypertension. 4 bilateral knee pain likely secondary to osteoarthritis/bursitis 5 knee effusion 6 diverticulosis plan -Monitor BMP -Gentle IV fluids -Will need some time to see if the kidney function are going to recover, however since the relief of obstruction the creatinine has almost half -Patient can be transferred [facility] from renal perspective -Consider orthotic consult for osteoarthritis -DC phos binders - renally dose all meds Consultation Date/Type/Reason Admit Date/Time Dec 08, 2018 at 09:15 Initial Consult Date 12/08/18 Requesting Provider: ARLENE MALLOY MD Date/Time of Note DATE: 12/12/18 TIME: 10:46 24 HR Interval Summary Free Text/Dictation Patient has bilateral knee pain Patient has been refusing IV fluids Exam/Review of Systems Exam Vitals Vital Signs Date Temp Pulse Resp B/P (MAP) Pulse Ox O2 O2 Flow FiO2 Time Delivery Rate 12/12/18 84 08:01 12/12/18 Nasal 2.0 07:26 Cannula 12/12/18 98.1 18 137/75 98 07:18 (95) Intake and Output 12/11/18 12/11/18 12/12/18 1515:00 23:00 07:00 IntakeIntake Total 980 ml 350 ml OutputOutput Total 1650 ml 800 ml BalanceBalance -670 ml -450 ml Exam onstitutional: alert, oriented Respiratory: clear to auscultation Cardiovascular: regular rate and rhythm Gastrointestinal: soft Genitourinary - Male: other (perkins) TTP knee pain Results Result Diagram: 12/10/18 0541 12/11/18 0555 Medications Medication Current Medications Sodium Chloride 1,000 ml @ 40 mls/hr Q24H IV Last administered on 12/11/18 00:00; Admin Dose 100 MLS/HR; Start 12/08/18 at 12:00 Morphine Sulfate (morphine) 2 mg Q4H PRN IV SEVERE PAIN LEVEL 7-10 Last administered on 12/11/18 20:08; Admin Dose 2 MG; Start 12/08/18 at 12:00 Hydralazine HCl (Apresoline) 25 mg Q8 PO Last administered on 12/12/18 05:43; Admin Dose 25 MG; Start 12/08/18 at 17:00 Gabapentin (Neurontin) 100 mg TID PO Last administered on 12/12/18 08:01; Admin Dose 100 MG; Start 12/08/18 at 21:00 Acetaminophen (Tylenol Tab) 500 mg Q4H PRN PO MILD PAIN(1-3)OR ELEVATED TEMP Last administered on 12/11/18 15:24; Admin Dose 500 MG; Start 12/08/18 at 22:30 Ondansetron HCl (Zofran Inj) 4 mg Q6H PRN IV NAUSEA AND/OR VOMITING; Start 12/08/18 at 22:30 Pantoprazole (Protonix Iv) 40 mg DAILY@06 IV Last administered on 12/12/18 05:43; Admin Dose 40 MG; Start 12/10/18 at 12:00 Hydralazine HCl (Apresoline) 10 mg Q6H PRN IV SBP>160 Last administered on 12/10/18 13:03; Admin Dose 10 MG; Start 12/09/18 at 14:30 Cefepime HCl 50 ml @ 100 mls/hr Q24H IVPB Last administered on 12/11/18 12:22; Admin Dose 100 MLS/HR; Start 12/10/18 at 13:00 Metoprolol Succinate (Toprol Xl) 50 mg DAILY PO Last administered on 12/12/18 08:02; Admin Dose 50 MG; Start 12/11/18 at 09:00 Ibuprofen (Motrin) 600 mg BID PRN PO MILD PAIN LEVEL 1-3; Start 12/10/18 at 15:30 Colchicine (Colchicine) 0.6 mg DAILY PO Last administered on 12/12/18 08:02; Admin Dose 0.6 MG; Start 12/11/18 at 09:00 Acetaminophen/ Hydrocodone Bitart ([place] (5/325)) 1 tab Q4H PRN PO MODERATE PAIN LEVEL 4-6 Last administered on 12/12/18at 05:52; Admin Dose 1 TAB; Start 12/10/18 at 15:30 Zolpidem Tartrate (Ambien) 5 mg HS PRN PO INSOMNIA Last administered on 12/11/18at 21:57; Admin Dose 5 MG; Start 12/11/18 at 20:00 ARLENE MALLOY MD Dec 12, 2018 10:51
[2018-12-12] MEDS: CEFEPIME 1GM/50 ML (PMX) 50 ML IVPB SCH (12:10)
--- NOTE | 2018-12-12 19:19 | CONS ---
Consult Date/Type/Reason Admit Date/Time Dec 08, 2018 at 09:15 Initial Consult Date 12/08/18 Type of Consultation: Urology Reason for Consultation Right renal stones Requesting Provider: ARLENE MALLOY MD Date/Time of Note DATE: 12/12/18 TIME: 19:15 Subjective Patient is feeling better. The pain in his knees is less. He however complains of insomnia. Objective Vitals Vital Signs Date Temp Pulse Resp B/P (MAP) Pulse Ox O2 O2 Flow FiO2 Time Delivery Rate 12/12/18 85 16:01 12/12/18 99.3 16 144/78 98 Room Air 15:12 (100) 12/12/18 2.0 07:26 Intake and Output 12/11/18 12/11/18 12/12/18 1515:00 23:00 07:00 IntakeIntake Total 980 ml 350 ml OutputOutput Total 1650 ml 800 ml BalanceBalance -670 ml -450 ml Exam The abdomen is soft, there is no flank tenderness. The Bustos catheter is draining clear urine. Results/Medications Result Diagram: 12/10/18 0541 12/11/18 0555 Home Meds Reported Medications Gabapentin* (Gabapentin*) 300 Mg Capsule, 300 MG PO TID, #90 CAP 11/09/18 Losartan Potassium* (Losartan Potassium*) 100 Mg Tablet, 100 MG PO DAILY, TAB 11/09/18 Medications Current Medications Sodium Chloride 1,000 ml @ 40 mls/hr Q24H IV Last administered on 12/11/18at 00:00; Admin Dose 100 MLS/HR; Start 12/08/18 at 12:00 Morphine Sulfate (morphine) 2 mg Q4H PRN IV SEVERE PAIN LEVEL 7-10 Last admi nistered on 12/11/18at 20:08; Admin Dose 2 MG; Start 12/08/18 at 12:00 Hydralazine HCl (Apresoline) 25 mg Q8 PO Last administered on 12/12/18at 13:39; Admin Dose 25 MG; Start 12/08/18 at 17:00 Gabapentin (Neurontin) 100 mg TID PO Last administered on 12/12/18at 12:08; Admin Dose 100 MG; Start 12/08/18 at 21:00 Acetaminophen (Tylenol Tab) 500 mg Q4H PRN PO MILD PAIN(1-3)OR ELEVATED TEMP Last administered on 12/11/18 15:24; Admin Dose 500 MG; Start 12/08/18 at 22:30 Ondansetron HCl (Zofran Inj) 4 mg Q6H PRN IV NAUSEA AND/OR VOMITING; Start 12/08/18 at 22:30 Pantoprazole (Protonix Iv) 40 mg DAILY@06 IV Last administered on 12/12/18 05:43; Admin Dose 40 MG; Start 12/10/18 at 12:00 Hydralazine HCl (Apresoline) 10 mg Q6H PRN IV SBP>160 Last administered on 12/10/18 13:03; Admin Dose 10 MG; Start 12/09/18 at 14:30 Cefepime HCl 50 ml @ 100 mls/hr Q24H IVPB Last administered on 12/12/18 12:10; Admin Dose 100 MLS/HR; Start 12/10/18 at 13:00 Metoprolol Succinate (Toprol Xl) 50 mg DAILY PO Last administered on 12/12/18 08:02; Admin Dose 50 MG; Start 12/11/18 at 09:00 Ibuprofen (Motrin) 600 mg BID PRN PO MILD PAIN LEVEL 1-3; Start 12/10/18 at 15:30 Colchicine (Colchicine) 0.6 mg DAILY PO Last administered on 12/12/18 08:02; Admin Dose 0.6 MG; Start 12/11/18 at 09:00 Acetaminophen/ Hydrocodone Bitart ([place] (5/325)) 1 tab Q4H PRN PO MODERATE PAIN LEVEL 4-6 Last administered on 12/12/18 05:52; Admin Dose 1 TAB; Start 12/10/18 at 15:30 Zolpidem Tartrate (Ambien) 5 mg HS PRN PO INSOMNIA Last administered on 12/11/18 21:57; Admin Dose 5 MG; Start 12/11/18 at 20:00 Imaging KUB done today is not reported yet. However one could see 3 possible stones o verlying the right kidney. 1 over the upper pole 1 over the middle pole and the last one over the lower pole. Assessment/Plan Hospital Course (Demo Recall) 63-year-old male presented initially to [facility] because of flank pain. He underwent a CT scan of the abdomen and pelvis and was diagnosed with right ureteral stone with hydronephrosis. He was transferred to [facility] as they were not able to get a urologist to see him at the other hospital. Patient is known to have a history of kidney stone. His creatinine is high and has increased from what it was at the other hospital. He underwent a repeat CT scan here and that showed: Moderate to severe right hydroureter nephrosis with stranding of surrounding perinephric and pararenal fat. 12 mm obstructing calculus proximal ureter. 6 mm stone in mid to distal ureter. Preservation of right renal parenchyma. Multiple nonobstructing right renal calculi. Severe left hydroureter nephrosis with severe atrophy of the parenchyma. Obstructing stone mid to distal ureter with small nonobstructing stone fragments in the hydronephrotic kidney. Diverticulosis. Right basilar atelectasis. Fatty liver. Upon reviewing the CT scan the left kidney has no parenchyma that is worth saving. Patient depends only on his right kidney which is obstructed by the stone. He underwent a cystoscopy and insertion of right ureteral stent to drain his kidney on 12/09/2018. Patient states that he has a history of gout and has been on allopurinol which he stopped about a month ago stating it causes him stomach ache. It appears that he is been on colchicine in the past. He had bilateral knee pain and that did decrease after he was started on colchicine. KUB today showed the JJ stent in good position and possible 3 calcification overlying the right kidney. I would repeat the KUB in the morning and recheck his renal function. Then we may consider doing lithotripsy to the stone in the kidney. MONICA PADGETT MD Dec 12, 2018 19:19
[2018-12-12] MEDS: ZOLPIDEM 5 MG TAB PO PRN (20:10)
--- NOTE | 2018-12-12 22:01 | PN ---
Date/Time of Note Date/Time of Note DATE: 12/12/18 TIME: 22:00 Assessment/Plan VTE Prophylaxis Risk score (from Ns)>0 risk: 4 SCD applied (from Ns): Yes Pharmacological prophylaxis: other Lines/Catheters IV [facility]from [facility] [place] Urinary Cath still in place: Yes Reason Cath still needed: urinary retention Assessment/Plan Assessment/Plan 1. Severe right hydroureter with multiple obstructing ureteral stones and preservation of right renal parenchyma and multiple nonobstructive right renal calculi. - per urology 2. Severe left hydroureteronephrosis with severe atrophy of parenchyma and obstructive stone mid to distal ureter. 3. Acute Kidney Injury - Nephrology follows 4. Possible infected stone versus right pyelonephritis. - cont antibiotics 5. Gout- colchicine 6. Obesity - weight management 7.History of hypertension. Patient seen in collaboration with Dr Ochoa. staff Result Diagram: 12/10/18 0541 12/11/18 0555 Subjective 24 Hr Interval Summary Constitutional: no complaints, improved Eyes: no complaints ENT: no complaints Respiratory: no complaints Cardiovascular: no complaints Gastrointestinal: no complaints Genitourinary: no complaints Musculoskeletal: no complaints Skin: no complaints Neurologic: no complaints Exam/Review of Systems Exam Vitals Vital Signs Date Temp Pulse Resp B/P (MAP) Pulse Ox O2 O2 Flow FiO2 Time Delivery Rate 12/12/18 98.5 89 16 159/87 96 20:20 (111) 12/12/18 Room Air 15:12 12/12/18 2.0 07:26 Intake and Output 12/11/18 12/11/18 12/12/18 1515:00 23:00 07:00 IntakeIntake Total 980 ml 350 ml OutputOutput Total 1650 ml 800 ml BalanceBalance -670 ml -450 ml Constitutional: alert, oriented, well developed Psych: nl mood/affect Eyes: EOMI, nl sclera ENMT: nl external ears & nose Neck: non-tender Respiratory: clear to auscultation Cardiovascular: nl pulses (s1s2), other Gastrointestinal: soft, non-tender Musculoskeletal: joint tenderness, range of motion Extremities: normal pulses Neurological: nl mental status, nl speech Skin: nl turgor Lymph: nontender Medications Medication Current Medications Sodium Chloride 1,000 ml @ 40 mls/hr Q24H IV Last administered on 12/11/18 00:00; Admin Dose 100 MLS/HR; Start 12/08/18 at 12:00 Morphine Sulfate (morphine) 2 mg Q4H PRN IV SEVERE PAIN LEVEL 7-10 Last administered on 12/12/18 20:12; Admin Dose 2 MG; Start 12/08/18 at 12:00 Hydralazine HCl (Apresoline) 25 mg Q8 PO Last administered on 12/12/18 21:34; Admin Dose 25 MG; Start 12/08/18 at 17:00 Gabapentin (Neurontin) 100 mg TID PO Last administered on 12/12/18 20:10; Admin Dose 100 MG; Start 12/08/18 at 21:00 Acetaminophen (Tylenol Tab) 500 mg Q4H PRN PO MILD PAIN(1-3)OR ELEVATED TEMP Last administered on 12/11/18 15:24; Admin Dose 500 MG; Start 12/08/18 at 22:30 Ondansetron HCl (Zofran Inj) 4 mg Q6H PRN IV NAUSEA AND/OR VOMITING; Start 12/08/18 at 22:30 Pantoprazole (Protonix Iv) 40 mg DAILY@06 IV Last administered on 12/12/18 05:43; Admin Dose 40 MG; Start 12/10/18 at 12:00 Hydralazine HCl (Apresoline) 10 mg Q6H PRN IV SBP>160 Last administered on 12/10/18 13:03; Admin Dose 10 MG; Start 12/09/18 at 14:30 Cefepime HCl 50 ml @ 100 mls/hr Q24H IVPB Last administered on 12/12/18 12:10; Admin Dose 100 MLS/HR; Start 12/10/18 at 13:00 Metoprolol Succinate (Toprol Xl) 50 mg DAILY PO Last administered on 12/12/18 08:02; Admin Dose 50 MG; Start 12/11/18 at 09:00 Ibuprofen (Motrin) 600 mg BID PRN PO MILD PAIN LEVEL 1-3; Start 12/10/18 at 15:30 Colchicine (Colchicine) 0.6 mg DAILY PO Last administered on 12/12/18 08:02; Admin Dose 0.6 MG; Start 12/11/18 at 09:00 Acetaminophen/ Hydrocodone Bitart ([place] (5/325)) 1 tab Q4H PRN PO MODERATE PAIN LEVEL 4-6 Last administered on 12/12/18at 05:52; Admin Dose 1 TAB; Start 12/10/18 at 15:30 Zolpidem Tartrate (Ambien) 5 mg HS PRN PO INSOMNIA Last administered on 12/12/18at 20:10; Admin Dose 5 MG; Start 12/11/18 at 20:00 JEN SALINAS Dec 12, 2018 22:01
[2018-12-13] VITALS (11 sets, daily range): BP systolic 122–156; BP diastolic 69–85; PULSE 66–96; RESP 16–19
[2018-12-13] MEDS: PANTOPRAZOLE 40 MG INJ IV SCH (05:39)
[2018-12-13] MEDS: IBUPROFEN 600 MG TAB PO PRN ×2 (05:40→20:53)
[2018-12-13] MEDS: GABAPENTIN 100 MG CAP PO SCH ×3 (08:08→20:53)
[2018-12-13] MEDS: METOPROLOL (XL) 50 MG TAB PO SCH (08:08)
[2018-12-13] MEDS: COLCHICINE 0.6 MG TAB PO SCH (08:08)
[2018-12-13] MEDS: ACETAMINOPHEN 500 MG TAB PO PRN ×2 (08:14→12:33)
[2018-12-13] MEDS: CEFEPIME 1GM/50 ML (PMX) 50 ML IVPB SCH (12:28)
--- NOTE | 2018-12-13 13:30 | CONS ---
Assessment/Plan Assessment/Plan Assessment/Plan (Daily) 1. Acute on chronic renal failure ( baseline creatinine is 2.4) likely secondary to severe hydronephrosis, perinephric fluid stranding, 1.5 cm obstructing stone at the right ureteropelvic junction, additional 7 mm calculus within the right upper ureter, punctate 2 mm calculus in right vesicoureteral junction. The patient also has severe chronic left hydronephrosis and thinning of the renal cortex, calcified 9 mm calculus within the left mid ureter. Status post right ureteral stent placement on 0 12/09 status post relief of obstruction creatinine function has improved and creatinine is back to baseline 2. Urinary obstruction secondary to stone. 3. Hypertension. 4 bilateral knee pain likely secondary to osteoarthritis/bursitis 5 knee effusion 6 diverticulosis plan -Monitor BMP -Gentle IV fluids -To trip see per urology -Patient can be transferred to [facility] from renal perspective -Consider ortho consult for osteoarthritis for intraarticular steroids - renally dose all meds Consultation Date/Type/Reason Admit Date/Time Dec 08, 2018 at 09:15 Initial Consult Date 12/08/18 Requesting Provider: ARLENE MALLOY MD Date/Time of Note DATE: 12/13/18 TIME: 13:27 24 HR Interval Summary Free Text/Dictation Patient feels a lot better. urine Output is increasing Creatinine is almost back to baseline Exam/Review of Systems Exam Vitals Vital Signs Date Temp Pulse Resp B/P (MAP) Pulse Ox O2 O2 Flow FiO2 Time Delivery Rate 12/13/18 98.4 75 16 122/69 98 Room Air 11:12 (86) 12/12/18 2.0 07:26 Intake and Output 12/12/18 12/12/18 12/13/18 1414:59 22:59 06:59 IntakeIntake Total 1000 ml 500 ml OutputOutput Total 1500 ml 1150 ml BalanceBalance -500 ml -650 ml Exam onstitutional: alert, oriented Respiratory: clear to auscultation Cardiovascular: regular rate and rhythm Gastrointestinal: soft Genitourinary - Male: other (perkins) TTP knee pain Results Results Result Diagram: 12/13/18 0552 12/13/18 0552 Results 24hrs Laboratory Tests Test 12/13/18 05:52 White Blood Count 10.8 Red Blood Count 4.62 L Hemoglobin 13.9 L Hematocrit 42.1 Mean Corpuscular Volume 91.1 Mean Corpuscular Hemoglobin 30.1 Mean Corpuscular Hemoglobin Concent 33.0 Red Cell Distribution Width 13.0 Platelet Count 180 # Mean Platelet Volume 10.1 Immature Granulocytes % 0.500 H Neutrophils % 71.7 Lymphocytes % 15.9 Monocytes % 10.3 Eosinophils % 1.2 Basophils % 0.4 Nucleated Red Blood Cells % 0.0 Immature Granulocytes # 0.050 H Neutrophils # 7.8 H Lymphocytes # 1.7 Monocytes # 1.1 H Eosinophils # 0.1 Basophils # 0.0 Nucleated Red Blood Cells # 0.0 Sodium Level 141 Potassium Level 4.8 Chloride Level 106 Carbon Dioxide Level 25 Anion Gap 10 Blood Urea Nitrogen 38 H Creatinine 2.46 #H Est Glomerular Filtrat Rate mL/min 27 L Glucose Level 98 Calcium Level 9.8 Medications Medication Current Medications Sodium Chloride 1,000 ml @ 40 mls/hr Q24H IV Last administered on 12/11/18at 00:00; Admin Dose 100 MLS/HR; Start 12/08/18 at 12:00 Morphine Sulfate (morphine) 2 mg Q4H PRN IV SEVERE PAIN LEVEL 7-10 Last administered on 12/12/18at 20:12; Admin Dose 2 MG; Start 12/08/18 at 12:00 Hydralazine HCl (Apresoline) 25 mg Q8 PO Last administered on 12/13/18at 05:40; Admin Dose 25 MG; Start 12/08/18 at 17:00 Gabapentin (Neurontin) 100 mg TID PO Last administered on 12/13/18at 12:28; Admin Dose 100 MG; Start 12/08/18 at 21:00 Acetaminophen (Tylenol Tab) 500 mg Q4H PRN PO MILD PAIN(1-3)OR ELEVATED TEMP Last administered on 12/13/18at 12:33; Admin Dose 500 MG; Start 12/08/18 at 22:30 Ondansetron HCl (Zofran Inj) 4 mg Q6H PRN IV NAUSEA AND/OR VOMITING; Start 12/08/18 at 22:30 Pantoprazole (Protonix Iv) 40 mg DAILY@06 IV Last administered on 12/13/18at 05:39; Admin Dose 40 MG; Start 12/10/18 at 12:00 Hydralazine HCl (Apresoline) 10 mg Q6H PRN IV SBP>160 Last administered on 12/10/18 13:03; Admin Dose 10 MG; Start 12/09/18 at 14:30 Cefepime HCl 50 ml @ 100 mls/hr Q24H IVPB Last administered on 12/13/18 12:28; Admin Dose 100 MLS/HR; Start 12/10/18 at 13:00 Metoprolol Succinate (Toprol Xl) 50 mg DAILY PO Last administered on 12/13/18 08:08; Admin Dose 50 MG; Start 12/11/18 at 09:00 Ibuprofen (Motrin) 600 mg BID PRN PO MILD PAIN LEVEL 1-3 Last administered on 12/13/18 05:40; Admin Dose 600 MG; Start 12/10/18 at 15:30 Colchicine (Colchicine) 0.6 mg DAILY PO Last administered on 12/13/18 08:08; Admin Dose 0.6 MG; Start 12/11/18 at 09:00 Acetaminophen/ Hydrocodone Bitart ([place] (5/325)) 1 tab Q4H PRN PO MODERATE PAIN LEVEL 4-6 Last administered on 12/12/18 05:52; Admin Dose 1 TAB; Start 12/10/18 at 15:30 Zolpidem Tartrate (Ambien) 5 mg HS PRN PO INSOMNIA Last administered on 12/12/18 20:10; Admin Dose 5 MG; Start 12/11/18 at 20:00 ARLENE MALLOY MD Dec 13, 2018 13:30
--- NOTE | 2018-12-13 19:53 | CONS ---
Consult Date/Type/Reason Admit Date/Time Dec 08, 2018 at 09:15 Initial Consult Date 12/08/18 Type of Consultation: Urology Reason for Consultation Right renal stones Requesting Provider: ARLENE MALLOY MD Date/Time of Note DATE: 12/13/18 TIME: 19:47 Subjective Patient is feeling better, his renal function has improved and he has no pain at the present Objective Vitals Vital Signs Date Temp Pulse Resp B/P (MAP) Pulse Ox O2 O2 Flow FiO2 Time Delivery Rate 12/13/18 81 16:01 12/13/18 97.6 18 138/76 98 Room Air 15:12 (96) 12/12/18 2.0 07:26 Intake and Output 12/12/18 12/12/18 12/13/18 1515:00 23:00 07:00 IntakeIntake Total 1000 ml 500 ml OutputOutput Total 1500 ml 1150 ml BalanceBalance -500 ml -650 ml Exam Abdomen is soft. KUB done yesterday and again today shows 1 stone in the upper pole of the right kidney another stone in the middle pole of the right kidney and another one in the lower pole of the right kidney. No stones are seen in the ureter. Comparing the KUBs to the CAT scan that he had on admission one could see that the stone that was in the right upper ureter at the ureteropelvic junction did go back into the kidney and is now in the lower pole calyx. Results/Medications Result Diagram: 12/13/18 0552 12/13/18 0552 Results 24 hrs Laboratory Tests Test 12/13/18 05:52 White Blood Count 10.8 Red Blood Count 4.62 L Hemoglobin 13.9 L Hematocrit 42.1 Mean Corpuscular Volume 91.1 Mean Corpuscular Hemoglobin 30.1 Mean Corpuscular Hemoglobin Concent 33.0 Red Cell Distribution Width 13.0 Platelet Count 180 # Mean Platelet Volume 10.1 Immature Granulocytes % 0.500 H Neutrophils % 71.7 Lymphocytes % 15.9 Monocytes % 10.3 Eosinophils % 1.2 Basophils % 0.4 Nucleated Red Blood Cells % 0.0 Immature Granulocytes # 0.050 H Neutrophils # 7.8 H Lymphocytes # 1.7 Monocytes # 1.1 H Eosinophils # 0.1 Basophils # 0.0 Nucleated Red Blood Cells # 0.0 Sodium Level 141 Potassium Level 4.8 Chloride Level 106 Carbon Dioxide Level 25 Anion Gap 10 Blood Urea Nitrogen 38 H Creatinine 2.46 #H Est Glomerular Filtrat Rate mL/min 27 L Glucose Level 98 Calcium Level 9.8 Home Meds Reported Medications Gabapentin* (Gabapentin*) 300 Mg Capsule, 300 MG PO TID, #90 CAP 11/09/18 Losartan Potassium* (Losartan Potassium*) 100 Mg Tablet, 100 MG PO DAILY, TAB 11/09/18 Medications Current Medications Sodium Chloride 1,000 ml @ 40 mls/hr Q24H IV Last administered on 12/11/18 00:00; Admin Dose 100 MLS/HR; Start 12/08/18 at 12:00 Morphine Sulfate (morphine) 2 mg Q4H PRN IV SEVERE PAIN LEVEL 7-10 Last administered on 12/12/18 20:12; Admin Dose 2 MG; Start 12/08/18 at 12:00 Hydralazine HCl (Apresoline) 25 mg Q8 PO Last administered on 12/13/18 14:00; Admin Dose 25 MG; Start 12/08/18 at 17:00 Gabapentin (Neurontin) 100 mg TID PO Last administered on 12/13/18 12:28; Admin Dose 100 MG; Start 12/08/18 at 21:00 Acetaminophen (Tylenol Tab) 500 mg Q4H PRN PO MILD PAIN(1-3)OR ELEVATED TEMP Last administered on 12/13/18at 12:33; Admin Dose 500 MG; Start 12/08/18 at 22:30 Ondansetron HCl (Zofran Inj) 4 mg Q6H PRN IV NAUSEA AND/OR VOMITING; Start 12/08/18 at 22:30 Hydralazine HCl (Apresoline) 10 mg Q6H PRN IV SBP>160 Last administered on 12/10/18 13:03; Admin Dose 10 MG; Start 12/09/18 at 14:30 Cefepime HCl 50 ml @ 100 mls/hr Q24H IVPB Last administered on 12/13/18 12:28; Admin Dose 100 MLS/HR; Start 12/10/18 at 13:00 Metoprolol Succinate (Toprol Xl) 50 mg DAILY PO Last administered on 12/13/18 08:08; Admin Dose 50 MG; Start 12/11/18 at 09:00 Ibuprofen (Motrin) 600 mg BID PRN PO MILD PAIN LEVEL 1-3 Last administered on 12/13/18at 05:40; Admin Dose 600 MG; Start 12/10/18 at 15:30 Colchicine (Colchicine) 0.6 mg DAILY PO Last administered on 12/13/18at 08:08; Admin Dose 0.6 MG; Start 12/11/18 at 09:00 Acetaminophen/ Hydrocodone Bitart ([place] (5/325)) 1 tab Q4H PRN PO MODERATE PAIN LEVEL 4-6 Last administered on 12/12/18at 05:52; Admin Dose 1 TAB; Start 12/10/18 at 15:30 Zolpidem Tartrate (Ambien) 5 mg HS PRN PO INSOMNIA Last administered on 12/12/18at 20:10; Admin Dose 5 MG; Start 12/11/18 at 20:00 Pantoprazole (Protonix Tab) 40 mg DAILY@06 PO ; Start 12/14/18 at 06:00 Assessment/Plan Hospital Course (Demo Recall) 63-year-old male presented initially to [facility] because of flank pain. He underwent a CT scan of the abdomen and pelvis and was diagnosed with right ureteral stone with hydronephrosis. He was transferred to [facility] as they were not able to get a urologist to see him at the other hospital. Patient is known to have a history of kidney stone. His creatinine is high and has increased from what it was at the other hospital. He underwent a repeat CT scan here and that showed: Moderate to severe right hydroureter nephrosis with stranding of surrounding perinephric and pararenal fat. 12 mm obstructing calculus proximal ureter. 6 mm stone in mid to distal ureter. Preservation of right renal parenchyma. Multiple nonobstructing right renal calculi. Severe left hydroureter nephrosis with severe atrophy of the parenchyma. Obstructing stone mid to distal ureter with small nonobstructing stone fragments in the hydronephrotic kidney. Diverticulosis. Right basilar atelectasis. Fatty liver. Upon reviewing the CT scan the left kidney has no parenchyma that is worth saving. Patient depends only on his right kidney which is obstructed by the stone. He underwent a cystoscopy and insertion of right ureteral stent to drain his kidney on 12/09/2018. Patient states that he has a history of gout and has been on allopurinol which he stopped about a month ago stating it causes him stomach ache. It appears that he is been on colchicine in the past. He had bilateral knee pain and that did decrease after he was started on colchicine. Comparing the KUBs to the CAT scan that he had on admission one could see that the stone that was in the right upper ureter at the ureteropelvic junction did go back into the kidney and is now in the lower pole calyx. I did show the CAT scan as well as the KUBs to the patient and showed him the stones that he has. Discussed with him in length the treatment. Explained to him that we will do extracorporeal shockwave lithotripsy to the larger stone in the upper pole and if it breaks well and we still could treat 1 of the other stones probably the one in the middle pole then we will do that. The stone in the lower pole calyx would have to be treated later on either with extracorporeal shockwave lithotripsy or doing ureteroscopy and laser lithotripsy and then we will remove the JJ stent. The patient did understand all of this and is agreeable to proceed. MONICA PADGETT MD Dec 13, 2018 19:53
[2018-12-13] MEDS: ZOLPIDEM 5 MG TAB PO PRN (21:16)
--- NOTE | 2018-12-13 23:10 | PN ---
Date/Time of Note Date/Time of Note DATE: 12/13/18 TIME: 23:09 Assessment/Plan VTE Prophylaxis Risk score (from [facility])>0 risk: 3 SCD applied (from [facility]): Yes Pharmacological prophylaxis: other Pharm contraindication: other Lines/Catheters IV C[facility]ter Type (from [facility]): Saline Lock Urinary Cath still in place: Yes Reason Cath still needed: urinary retention Assessment/Plan Assessment/Plan 1. Severe right hydroureter with multiple obstructing ureteral stones and preservation of right renal parenchyma and multiple nonobstructive right renal calculi. - per urology 2. Severe left hydroureteronephrosis with severe atrophy of parenchyma and obstructive stone mid to distal ureter. 3. Acute Kidney Injury - Nephrology follows 4. Possible infected stone versus right pyelonephritis. - cont antibiotics 5. Gout- colchicine 6. Obesity - weight management 7.History of hypertension. Patient seen in collaboration with Dr Ochoa. staff Result Diagram: 12/13/18 0552 12/13/18 0552 Results 24hrs Laboratory Tests Test 12/13/18 05:52 White Blood Count 10.8 Red Blood Count 4.62 L Hemoglobin 13.9 L Hematocrit 42.1 Mean Corpuscular Volume 91.1 Mean Corpuscular Hemoglobin 30.1 Mean Corpuscular Hemoglobin Concent 33.0 Red Cell Distribution Width 13.0 Platelet Count 180 # Mean Platelet Volume 10.1 Immature Granulocytes % 0.500 H Neutrophils % 71.7 Lymphocytes % 15.9 Monocytes % 10.3 Eosinophils % 1.2 Basophils % 0.4 Nucleated Red Blood Cells % 0.0 Immature Granulocytes # 0.050 H Neutrophils # 7.8 H Lymphocytes # 1.7 Monocytes # 1.1 H Eosinophils # 0.1 Basophils # 0.0 Nucleated Red Blood Cells # 0.0 Sodium Level 141 Potassium Level 4.8 Chloride Level 106 Carbon Dioxide Level 25 Anion Gap 10 Blood Urea Nitrogen 38 H Creatinine 2.46 #H Est Glomerular Filtrat Rate mL/min 27 L Glucose Level 98 Calcium Level 9.8 Subjective 24 Hr Interval Summary Free Text/Dictation feels better nad nonew eents reported last night Constitutional: improved Eyes: no complaints ENT: no complaints Respiratory: no complaints Cardiovascular: no complaints Gastrointestinal: no complaints Genitourinary: no complaints Musculoskeletal: no complaints Skin: no complaints Exam/Review of Systems Exam Vitals Vital Signs Date Temp Pulse Resp B/P (MAP) Pulse Ox O2 O2 Flow FiO2 Time Delivery Rate 12/13/18 98.1 66 19 156/84 95 20:00 (108) 12/13/18 Room Air 15:12 12/12/18 2.0 07:26 Intake and Output 12/12/18 12/12/18 12/13/18 1515:00 23:00 07:00 IntakeIntake Total 1000 ml 500 ml OutputOutput Total 1500 ml 1150 ml BalanceBalance -500 ml -650 ml Constitutional: alert, oriented, well developed Psych: nl mood/affect Head: normocephalic Eyes: EOMI, nl lids, nl sclera ENMT: nl external ears & nose Neck: non-tender Respiratory: clear to auscultation Cardiovascular: nl pulses, other (s1s2) Gastrointestinal: soft, non-tender Musculoskeletal: nl extremities to inspection Neurological: nl mental status Skin: nl turgor Lymph: nl lymph nodes Results Results 24hrs Laboratory Tests Test 12/13/18 05:52 White Blood Count 10.8 Red Blood Count 4.62 L Hemoglobin 13.9 L Hematocrit 42.1 Mean Corpuscular Volume 91.1 Mean Corpuscular Hemoglobin 30.1 Mean Corpuscular Hemoglobin Concent 33.0 Red Cell Distribution Width 13.0 Platelet Count 180 # Mean Platelet Volume 10.1 Immature Granulocytes % 0.500 H Neutrophils % 71.7 Lymphocytes % 15.9 Monocytes % 10.3 Eosinophils % 1.2 Basophils % 0.4 Nucleated Red Blood Cells % 0.0 Immature Granulocytes # 0.050 H Neutrophils # 7.8 H Lymphocytes # 1.7 Monocytes # 1.1 H Eosinophils # 0.1 Basophils # 0.0 Nucleated Red Blood Cells # 0.0 Sodium Level 141 Potassium Level 4.8 Chloride Level 106 Carbon Dioxide Level 25 Anion Gap 10 Blood Urea Nitrogen 38 H Creatinine 2.46 #H Est Glomerular Filtrat Rate mL/min 27 L Glucose Level 98 Calcium Level 9.8 Medications Medication Current Medications Sodium Chloride 1,000 ml @ 40 mls/hr Q24H IV Last administered on 12/11/18at 00:00; Admin Dose 100 MLS/HR; Start 12/08/18 at 12:00 Morphine Sulfate (morphine) 2 mg Q4H PRN IV SEVERE PAIN LEVEL 7-10 Last administered on 12/12/18at 20:12; Admin Dose 2 MG; Start 12/08/18 at 12:00 Hydralazine HCl (Apresoline) 25 mg Q8 PO Last administered on 12/13/18 20:54; Admin Dose 25 MG; Start 12/08/18 at 17:00 Gabapentin (Neurontin) 100 mg TID PO Last administered on 12/13/18 20:53; Admin Dose 100 MG; Start 12/08/18 at 21:00 Acetaminophen (Tylenol Tab) 500 mg Q4H PRN PO MILD PAIN(1-3)OR ELEVATED TEMP Last administered on 12/13/18 12:33; Admin Dose 500 MG; Start 12/08/18 at 22:30 Ondansetron HCl (Zofran Inj) 4 mg Q6H PRN IV NAUSEA AND/OR VOMITING; Start 12/08/18 at 22:30 Hydralazine HCl (Apresoline) 10 mg Q6H PRN IV SBP>160 Last administered on 12/10/18 13:03; Admin Dose 10 MG; Start 12/09/18 at 14:30 Cefepime HCl 50 ml @ 100 mls/hr Q24H IVPB Last administered on 12/13/18 12:28; Admin Dose 100 MLS/HR; Start 12/10/18 at 13:00 Metoprolol Succinate (Toprol Xl) 50 mg DAILY PO Last administered on 12/13/18 08:08; Admin Dose 50 MG; Start 12/11/18 at 09:00 Ibuprofen (Motrin) 600 mg BID PRN PO MILD PAIN LEVEL 1-3 Last administered on 12/13/18 20:53; Admin Dose 600 MG; Start 12/10/18 at 15:30 Colchicine (Colchicine) 0.6 mg DAILY PO Last administered on 12/13/18 08:08; Admin Dose 0.6 MG; Start 12/11/18 at 09:00 Acetaminophen/ Hydrocodone Bitart ([place] (5/325)) 1 tab Q4H PRN PO MODERATE PAIN LEVEL 4-6 Last administered on 12/12/18 05:52; Admin Dose 1 TAB; Start 12/10/18 at 15:30 Zolpidem Tartrate (Ambien) 5 mg HS PRN PO INSOMNIA Last administered on 12/13/18 21:16; Admin Dose 5 MG; Start 12/11/18 at 20:00 Pantoprazole (Protonix Tab) 40 mg DAILY@06 PO ; Start 12/14/18 at 06:00 JEN SALINAS Dec 13, 2018 23:09
[2018-12-13] MEDS: SOD CHLORIDE 0.9% 1,000 ML IV SCH (23:52)
[2018-12-14] VITALS (17 sets, daily range): BP systolic 131–146; BP diastolic 70–81; PULSE 60–96; RESP 13–23
[2018-12-14] MEDS: ACETAMINOPHEN 500 MG TAB PO PRN ×3 (03:39→23:49)
[2018-12-14] MEDS: PANTOPRAZOLE (EC) 40 MG TAB PO SCH (06:00)
[2018-12-14] MEDS: GABAPENTIN 100 MG CAP PO SCH ×3 (08:31→20:59)
[2018-12-14] MEDS: COLCHICINE 0.6 MG TAB PO SCH (08:31)
[2018-12-14] MEDS: METOPROLOL (XL) 50 MG TAB PO SCH (08:32)
--- NOTE | 2018-12-14 09:43 | CONS ---
Assessment/Plan Assessment/Plan Assessment/Plan (Daily) 1. Acute on chronic renal failure ( baseline creatinine is 2.4) likely secondary to severe hydronephrosis, perinephric fluid stranding, 1.5 cm obstructing stone at the right ureteropelvic junction, additional 7 mm calculus within the right upper ureter, punctate 2 mm calculus in right vesicoureteral junction. The patient also has severe chronic left hydronephrosis and thinning of the renal cortex, calcified 9 mm calculus within the left mid ureter. Status post right ureteral stent placement on 0 12/09 status post relief of obstruction creatinine function has improved and creatinine is back to baseline , creatinine is 2.3 today 2. Urinary obstruction secondary to stone. 3. Hypertension. 4 bilateral knee pain likely secondary to osteoarthritis/bursitis 5 knee effusion 2 arthritis 6 diverticulosis plan -Monitor BMP -Gentle IV fluids, urine output 2 L yesterday -Lithotripsy scheduled today -Patient can be transferred to [facility] from renal perspective -Consider ortho consult for osteoarthritis for intraarticular steroids -he is current on colchicine and ibuprofen for knee pain continue to monitor as it can worsen the kidney function - renally dose all meds Consultation Date/Type/Reason Admit Date/Time Dec 08, 2018 at 09:15 Initial Consult Date 12/08/18 Requesting Provider: ARLENE MALLOY MD Date/Time of Note DATE: 12/14/18 TIME: 09:41 24 HR Interval Summary Free Text/Dictation Scheduled for lithotripsy today Knee pain still there Exam/Review of Systems Exam Vitals Vital Signs Date Temp Pulse Resp B/P (MAP) Pulse Ox O2 O2 Flow FiO2 Time Delivery Rate 12/14/18 69 08:18 12/14/18 97.9 20 137/75 97 07:22 (95) 12/13/18 Room Air 15:12 12/12/18 2.0 07:26 Intake and Output 12/13/18 12/13/18 12/14/18 1414:59 22:59 06:59 IntakeIntake Total 1500 ml 800 ml OutputOutput Total 900 ml 1100 ml BalanceBalance 600 ml -300 ml Exam onstitutional: alert, oriented Respiratory: clear to auscultation Cardiovascular: regular rate and rhythm Gastrointestinal: soft Genitourinary - Male: other (perkins) TTP knee pain Results Result Diagram: 12/14/18 0634 12/14/18 0634 Results 24hrs Laboratory Tests Test 12/14/18 06:34 White Blood Count 7.5 # Red Blood Count 4.52 L Hemoglobin 13.6 L Hematocrit 41.8 L Mean Corpuscular Volume 92.5 Mean Corpuscular Hemoglobin 30.1 Mean Corpuscular Hemoglobin Concent 32.5 Red Cell Distribution Width 13.1 Platelet Count 197 Mean Platelet Volume 9.7 Immature Granulocytes % 0.700 H Neutrophils % 62.6 Lymphocytes % 22.1 Monocytes % 11.4 H Eosinophils % 2.7 Basophils % 0.5 Nucleated Red Blood Cells % 0.0 Immature Granulocytes # 0.050 H Neutrophils # 4.7 Lymphocytes # 1.7 Monocytes # 0.9 Eosinophils # 0.2 Basophils # 0.0 Nucleated Red Blood Cells # 0.0 Sodium Level 142 Potassium Level 4.4 Chloride Level 107 Carbon Dioxide Level 24 Anion Gap 11 Blood Urea Nitrogen 44 H Creatinine 2.32 H Est Glomerular Filtrat Rate mL/min 29 L Glucose Level 97 Calcium Level 9.7 Medications Medication Current Medications Sodium Chloride 1,000 ml @ 40 mls/hr Q24H IV Last administered on 12/11/18 00:00; Admin Dose 100 MLS/HR; Start 12/08/18 at 12:00 Morphine Sulfate (morphine) 2 mg Q4H PRN IV SEVERE PAIN LEVEL 7-10 Last administered on 12/12/18at 20:12; Admin Dose 2 MG; Start 12/08/18 at 12:00 Hydralazine HCl (Apresoline) 25 mg Q8 PO Last administered on 12/14/18 06:01; Admin Dose 25 MG; Start 12/08/18 at 17:00 Gabapentin (Neurontin) 100 mg TID PO Last administered on 12/14/18 08:31; Admin Dose 100 MG; Start 12/08/18 at 21:00 Acetaminophen (Tylenol Tab) 500 mg Q4H PRN PO MILD PAIN(1-3)OR ELEVATED TEMP Last administered on 12/14/18at 08:38; Admin Dose 500 MG; Start 12/08/18 at 22:30 Ondansetron HCl (Zofran Inj) 4 mg Q6H PRN IV NAUSEA AND/OR VOMITING; Start 12/08/18 at 22:30 Hydralazine HCl (Apresoline) 10 mg Q6H PRN IV SBP>160 Last administered on 12/10/18 13:03; Admin Dose 10 MG; Start 12/09/18 at 14:30 Cefepime HCl 50 ml @ 100 mls/hr Q24H IVPB Last administered on 12/13/18 12:28; Admin Dose 100 MLS/HR; Start 12/10/18 at 13:00 Metoprolol Succinate (Toprol Xl) 50 mg DAILY PO Last administered on 12/14/18 08:32; Admin Dose 50 MG; Start 12/11/18 at 09:00 Ibuprofen (Motrin) 600 mg BID PRN PO MILD PAIN LEVEL 1-3 Last administered on 12/13/18 20:53; Admin Dose 600 MG; Start 12/10/18 at 15:30 Colchicine (Colchicine) 0.6 mg DAILY PO Last administered on 12/14/18 08:31; Admin Dose 0.6 MG; Start 12/11/18 at 09:00 Acetaminophen/ Hydrocodone Bitart ([place] (5/325)) 1 tab Q4H PRN PO MODERATE PAIN LEVEL 4-6 Last administered on 12/12/18 05:52; Admin Dose 1 TAB; Start 12/10/18 at 15:30 Zolpidem Tartrate (Ambien) 5 mg HS PRN PO INSOMNIA Last administered on 12/13/18 21:16; Admin Dose 5 MG; Start 12/11/18 at 20:00 Pantoprazole (Protonix Tab) 40 mg DAILY@06 PO Last administered on 12/14/18 06:00; Admin Dose 40 MG; Start 12/14/18 at 06:00 ARLENE MALLOY MD Dec 14, 2018 09:43
[2018-12-14] MEDS: CEFEPIME 1GM/50 ML (PMX) 50 ML IVPB SCH (12:39)
--- NOTE | 2018-12-14 18:23 | PREAC ---
Date/Time of Note Date/Time of Note DATE: 12/14/18 TIME: 18:21 Anesthesia Eval and Record Evaluation Time Pre-Procedure Interview DATE: 12/14/18 TIME: 18:21 Age 63 Sex male NPO: 8 hrs Preoperative diagnosis Right Kidney Stone Planned procedure Right ESWL Past Medical History Past Medical History: Includes Cardio: HTN Renal: CKD Heme: Anemia Surgery & Anesthesia Issues No known issue Meds Anticoagulation: No Beta Pia within 24 hr: No Reason Beta Pia not given: Pt. not on B-Pia Reported Medications Gabapentin* (Gabapentin*) 300 Mg Capsule, 300 MG PO TID, #90 CAP 11/09/18 Losartan Potassium* (Losartan Potassium*) 100 Mg Tablet, 100 MG PO DAILY, TAB 11/09/18 Current Medications Sodium Chloride 1,000 ml @ 40 mls/hr Q24H IV Last administered on 12/11/18at 00:00; Admin Dose 100 MLS/HR; Start 12/08/18 at 12:00 Morphine Sulfate (morphine) 2 mg Q4H PRN IV SEVERE PAIN LEVEL 7-10 Last administered on 12/12/18at 20:12; Admin Dose 2 MG; Start 12/08/18 at 12:00 Hydralazine HCl (Apresoline) 25 mg Q8 PO Last administered on 12/14/18at 06:01; Admin Dose 25 MG; Start 12/08/18 at 17:00 Gabapentin (Neurontin) 100 mg TID PO Last administered on 12/14/18at 08:31; Admin Dose 100 MG; Start 12/08/18 at 21:00 Acetaminophen (Tylenol Tab) 500 mg Q4H PRN PO MILD PAIN(1-3)OR ELEVATED TEMP Last administered on 12/14/18at 08:38; Admin Dose 500 MG; Start 12/08/18 at 22:30 Ondansetron HCl (Zofran Inj) 4 mg Q6H PRN IV NAUSEA AND/OR VOMITING; Start 12/08/18 at 22:30 Hydralazine HCl (Apresoline) 10 mg Q6H PRN IV SBP>160 Last administered on 12/10/18at 13:03; Admin Dose 10 MG; Start 12/09/18 at 14:30 Cefepime HCl 50 ml @ 100 mls/hr Q24H IVPB Last administered on 12/14/18at 12:39; Admin Dose 100 MLS/HR; Start 12/10/18 at 13:00 Metoprolol Succinate (Toprol Xl) 50 mg DAILY PO Last administered on 12/14/18 08:32; Admin Dose 50 MG; Start 12/11/18 at 09:00 Ibuprofen (Motrin) 600 mg BID PRN PO MILD PAIN LEVEL 1-3 Last administered on 12/13/18 20:53; Admin Dose 600 MG; Start 12/10/18 at 15:30 Colchicine (Colchicine) 0.6 mg DAILY PO Last administered on 12/14/18 08:31; Admin Dose 0.6 MG; Start 12/11/18 at 09:00 Acetaminophen/ Hydrocodone Bitart ([place] (5/325)) 1 tab Q4H PRN PO MODERATE PAIN LEVEL 4-6 Last administered on 12/12/18 05:52; Admin Dose 1 TAB; Start 12/10/18 at 15:30 Zolpidem Tartrate (Ambien) 5 mg HS PRN PO INSOMNIA Last administered on 12/13/18 21:16; Admin Dose 5 MG; Start 12/11/18 at 20:00 Pantoprazole (Protonix Tab) 40 mg DAILY@06 PO Last administered on 12/14/18 06:00; Admin Dose 40 MG; Start 12/14/18 at 06:00 Meds reviewed: Yes Allergies Coded Allergies: No Known Allergies (Verified Allergy, Unknown, 11/09/18) Allergies Reviewed: Yes Labs/Studies Labs Reviewed: Reviewed by anesthesiologist Result Diagram: 12/14/1863312/14/18 0634 Laboratory Tests 12/14/18 06:34 test: N/A Studies: ECG (n/a), CXR (n/a) Pre-procedure Exam Last vitals Vital Signs Date Temp Pulse Resp B/P (MAP) Pulse Ox O2 O2 Flow FiO2 Time Delivery Rate 12/14/18 64 16:12 12/14/18 98.1 20 140/76 96 15:25 (97) 12/13/18 Room Air 15:12 12/12/18 2.0 07:26 Airway: Adequate mouth opening, Adequate thyromental dist Mallampati: Mallampati II Teeth: Normal Lung: Normal Heart: Normal ASA Physical Status ASA physical status: 2 Emergency: None Planned Anesthetic General/MAC: LMA Planned Pain Management Parenteral pain med Pre-operative Attestations Prior to commencing anesthesia and surgery, the patient was re-evaluated, there was verification of: *The patient's identity *The results of appropriate recent lab work and preoperative vital signs *The above evaluation not changing prior to induction *Anesthetic plan, risk benefits, alternative and complications discussed with patient/family; questions answered; patient/family understands, accepts and wishes to proceed. FAUZIA BALES MD Dec 14, 2018 18:23
[2018-12-14] MEDS ORDERED: FENTAnyl 50 MCG/ML VIAL ONE (18:29)
[2018-12-14] MEDS ORDERED: MIDAZOLAM 1 MG/ML 2 ML INJ ONE (18:29)
[2018-12-14] MEDS ORDERED: PROPOFOL 20 ML ONE (18:29)
[2018-12-14] MEDS ORDERED: CEFAZOLIN 1 GM INJ ONE (18:29)
[2018-12-14] MEDS ORDERED: METOCLOPRAMIDE 10 MG INJ ONE (18:59)
[2018-12-14] MEDS ORDERED: ROCURONIUM 50 MG INJ ONE (18:59)
[2018-12-14] MEDS ORDERED: KETOROLAC 30 MG INJ ONE (18:59)
[2018-12-14] MEDS ORDERED: DEXAMETHASONE 4 MG/ML 5 ML INJ ONE (18:59)
[2018-12-14] MEDS ORDERED: ONDANSETRON 4 MG INJ ONE (18:59)
[2018-12-14] MEDS ORDERED: KETOROLAC 30 MG INJ IV PRN (19:00)
[2018-12-14] MEDS ORDERED: FENTAnyl 50 MCG/ML VIAL IV PRN ×3 (19:00)
[2018-12-14] MEDS ORDERED: HYDROmorphONE 1 MG/5 ML IV SYRINGE IV PRN ×3 (19:00)
[2018-12-14] MEDS ORDERED: METOCLOPRAMIDE 10 MG INJ IV PRN (19:00)
[2018-12-14] MEDS ORDERED: LABETALOL HCL 20MG INJ IV PRN (19:00)
[2018-12-14] MEDS ORDERED: EPHEDrine SULFATE 50 MG/5 ML SYG IV PRN (19:00)
[2018-12-14] MEDS ORDERED: OXYCODONE/ACETAMINOPHEN (5/325) TAB PO PRN ×2 (19:00)
[2018-12-14] MEDS ORDERED: ONDANSETRON 4 MG INJ IV PRN (19:00)
[2018-12-14] MEDS ORDERED: hydrALAzine 20 MG INJ IV PRN (19:00)
[2018-12-14] MEDS ORDERED: FUROSEMIDE 20 MG INJ ONE (19:05)
[2018-12-14] MEDS ORDERED: GLYCOPYRROLATE 0.4 MG INJ ONE (19:24)
[2018-12-14] MEDS ORDERED: NEOSTIGMINE 10 MG INJ ONE (19:24)
--- NOTE | 2018-12-14 19:39 | PAC ---
Date/Time of Note Date/Time of Note DATE: 12/14/18 TIME: 19:38 Post-Anesthesia Notes Post-Anesthesia Note Last documented vital signs Vital Signs Date Temp Pulse Resp B/P (MAP) Pulse Ox O2 O2 Flow FiO2 Time Delivery Rate 12/14/18 64 16:12 12/14/18 98.1 86 20 140/76 96 face mask 8 L 19:25 (97) 12/13/18 Room Air 15:12 12/12/18 2.0 07:26 Activity: WNL Respiratory function: WNL Cardiovascular function: WNL Mental status: Baseline Pain reasonably controlled: Yes Hydration appropriate: Yes Nausea/Vomiting absent: Yes FAUZIA BALES MD Dec 14, 2018 19:39
--- NOTE | 2018-12-14 19:43 | OPR ---
Date/Time of Note Date/Time of Note DATE: 12/14/18 TIME: 19:37 Operative Report Procedure Date: Dec 14, 2018 Preoperative Diagnosis Right renal stones Postoperative Diagnosis Same Operation/Procedure Performed Right extracorporeal shockwave lithotripsy to the upper right renal stone and right middle renal stone. Surgeon see signature line Certified Pharmacy Tech Walt Vega Anesthesia Type: general Anesthesiologist: FAUZIA BALES MD Estimated Blood Loss: none Transfusion none Specimen None Grafts/Implants none Complications none Pt Condition Post Procedure: stable Disposition: PACU Indications Right renal stones Procedure Description The patient was brought to the operating room. He was positioned in the supine position on the lithotripsy machine table. He was given general anesthesia and 2 g of Ancef at the start of the procedure. Timeout was done and the patient was identified by his name, birthdate, the procedure and the side of the procedure. The stone located in the upper pole calyx of the right kidney and measuring 10 mm was then visualized on both screens. The shockwave lithotripsy was then started. The energy level started with 3 KV and went up to 7 gradually. The position of the stone was checked regularly every 300-400 shockwaves. The stone appeared to be breaking well and the total shockwaves delivered to the stone were 1800 shocks. Then we moved and treated the stones in the middle pole calyx with the 600 shockwaves. The total shockwaves were 2400. The patient was given 10 mg of Lasix IV at about 2000 shockwaves. The patient tolerated the procedure well and was transferred to the recovery room in a stable and satisfactory condition. MONICA PADGETT MD Dec 14, 2018 19:43
[2018-12-14] MEDS: IBUPROFEN 600 MG TAB PO PRN (20:59)
[2018-12-14] MEDS: LACTATED RINGER'S 1,000 ML IV SCH (21:00)
--- NOTE | 2018-12-14 22:03 | PN ---
DATE: 12/14/2018 SUBJECTIVE: The patient still has dark colored urine, occasional pain in the right flank. No report ed fever or chills. PHYSICAL EXAMINATION: GENERAL: The patient is awake, alert. VITAL SIGNS: Temperature 98.1, pulse 64, respirations 20, blood pressure 140/70, O2 saturation 96 on room air. HEENT: No eye discharge or redness. Conjunctivae normal. Oropharynx clear. NECK: No mass. CHEST: Fairly clear. CARDIOVASCULAR: S1 and S2 normal, no murmur. ABDOMEN: Soft. No significant tenderness on the right side. LABORATORY DATA: Chemistry: Sodium 140, potassium 4.4, BUN 44, creatinine 2.3 down from 2.4 yesterd ay. WBC 7.5 and hemoglobin 13.6. IMPRESSION AND PLAN: 1. Moderate to severe right hydroureteronephrosis with a ureteral stone and severe left hydrouretero nephrosis with severe atrophy. The patient will be taken to OR for lithotripsy today. 2. Hypertension. Blood pressure reasonably controlled with the metoprolol and hydralazine. We will discontinue ibuprofen. I will transfer him to Med-Surg. Dictated By: LADAN BENITES MD AB/NTS Conf#: [id number] DID#: [id number] CC: NEYMAR HICKS MD;*End*
[2018-12-14] MEDS: SOD CHLORIDE 0.9% 1,000 ML IV SCH (23:50)
[2018-12-14] MEDS: ZOLPIDEM 5 MG TAB PO PRN (23:50)
[2018-12-15 04:06] VITALS: BP 145/81; PULSE 96; RESP 18
[2018-12-15] MEDS: LACTATED RINGER'S 1,000 ML IV SCH ×2 (04:53→12:18)
[2018-12-15] MEDS: PANTOPRAZOLE (EC) 40 MG TAB PO SCH (05:29)
[2018-12-15] MEDS: ACETAMINOPHEN 500 MG TAB PO PRN ×2 (05:35→09:12)
[2018-12-15 07:07] VITALS: BP 141/72; PULSE 80; RESP 20
--- NOTE | 2018-12-15 08:01 | PN ---
Date/Time of Note Date/Time of Note DATE: 12/15/18 TIME: 07:58 Assessment/Plan Lines/Catheters IV Catheter Type (from [facility]): Peripheral IV Bustos in Place (from [facility]): No Assessment/Plan Chief Complaint/Hosp Course 63-year-old male status post extracorporeal shockwave lithotripsy, he is doing well. KUB showed that the stones have broken well. Patient may be discharged home today and follow-up in the office in 2 weeks. He will still need one treatment for the remaining stone that he has. I did give him my card with my phone number on it and instructed him to call and make an appointment. Also told him that we will keep the JJ stent still after we take care of the remaining stone. Subjective 24 Hr Interval Summary Patient is status post extracorporeal shockwave lithotripsy to right renal stones. He is doing well, has no pain Exam/Review of Systems Vital Signs Vitals Vital Signs Date Temp Pulse Resp B/P (MAP) Pulse Ox O2 O2 Flow FiO2 Time Delivery Rate 12/15/18 98.3 80 20 141/72 95 07:07 (95) 12/15/18 Nasal 04:06 Cannula 12/14/18 2.0 23:42 Intake and Output 12/14/18 12/14/18 12/15/18 1515:00 23:00 07:00 IntakeIntake Total 1050 ml 1400 ml OutputOutput Total 850 ml 1800 ml BalanceBalance 200 ml -400 ml Exam Free Text/Dictation Abdomen is soft, he has mild flank tenderness. The Bustos catheter is draining blood-tinged urine. KUB done this morning and that showed the stones in the upper pole and middle pole to have broken well. The stone in the lower pole which was not treated is intact. The JJ stent is in place Results Result Diagram: 12/15/18 0614 12/15/18 0614 MONICA PADGETT MD Dec 15, 2018 08:01
[2018-12-15] MEDS: GABAPENTIN 100 MG CAP PO SCH ×2 (09:12→12:34)
[2018-12-15] MEDS: COLCHICINE 0.6 MG TAB PO SCH (09:12)
[2018-12-15] MEDS: METOPROLOL (XL) 50 MG TAB PO SCH (09:12)
--- NOTE | 2018-12-15 10:21 | PN ---
Date/Time of Note Date/Time of Note DATE: 12/15/18 TIME: 10:21 Assessment/Plan VTE Prophylaxis [place] [facility] [place] [facility]: 2 SCD applied [place] [facility] Yes Pharmacological prophylaxis: other Pharm contraindication: other Lines/Catheters [facility] Peripheral IV Urinary Cath still in place: No Assessment/Plan Assessment/Plan 1. Severe right hydroureter with multiple obstructing ureteral stones and preservation of right renal parenchyma and multiple nonobstructive right renal calculi. - per urology 2. Severe left hydroureteronephrosis with severe atrophy of parenchyma and obstructive stone mid to distal ureter. - sp lithotripsy yesterday 3. Acute Kidney Injury - Nephrology follows 4. Possible infected stone versus right pyelonephritis. - cont antibiotics 5. Gout- colchicine 6. Obesity - weight management 7.History of hypertension. Patient seen in collaboration with Dr Ochoa. staff Result Diagram: 12/15/18 0614 12/15/18 0614 Results 24hrs Laboratory Tests Test 12/15/18 06:14 White Blood Count 7.8 Red Blood Count 4.28 L Hemoglobin 13.1 L Hematocrit 39.2 L Mean Corpuscular Volume 91.6 Mean Corpuscular Hemoglobin 30.6 Mean Corpuscular Hemoglobin Concent 33.4 Red Cell Distribution Width 12.6 Platelet Count 219 Mean Platelet Volume 9.8 Immature Granulocytes % 0.500 H Neutrophils % 85.3 H Lymphocytes % 11.8 L Monocytes % 2.1 Eosinophils % 0.0 Basophils % 0.3 Nucleated Red Blood Cells % 0.0 Immature Granulocytes # 0.040 H Neutrophils # 6.6 Lymphocytes # 0.9 Monocytes # 0.2 L Eosinophils # 0.0 Basophils # 0.0 Nucleated Red Blood Cells # 0.0 Sodium Level 139 Potassium Level 5.1 Chloride Level 106 Carbon Dioxide Level 20 L Anion Gap 13 Blood Urea Nitrogen 43 H Creatinine 2.25 H Est Glomerular Filtrat Rate mL/min 30 L Glucose Level 131 Calcium Level 9.2 Subjective 24 Hr Interval Summary Constitutional: improved Eyes: no complaints ENT: no complaints Respiratory: no complaints Cardiovascular: no complaints Gastrointestinal: no complaints Genitourinary: no complaints Musculoskeletal: no complaints Skin: no complaints Exam/Review of Systems Exam Vitals Vital Signs Date Temp Pulse Resp B/P (MAP) Pulse Ox O2 O2 Flow FiO2 Time Delivery Rate 12/15/18 98.3 80 20 141/72 95 07:07 (95) 12/15/18 Nasal 04:06 Cannula 12/14/18 2.0 23:42 Intake and Output 12/14/18 12/14/18 12/15/18 1515:00 23:00 07:00 IntakeIntake Total 1050 ml 1400 ml OutputOutput Total 850 ml 1800 ml BalanceBalance 200 ml -400 ml Constitutional: alert, oriented, well developed Psych: nl mood/affect Head: atraumatic Eyes: EOMI ENMT: nl external ears & nose Neck: non-tender Respiratory: clear to auscultation Cardiovascular: nl pulses, other (s1s2) Gastrointestinal: soft, non-tender Musculoskeletal: nl extremities to inspection Extremities: normal pulses Neurological: nl mental status, nl speech Skin: nl turgor Lymph: nontender Results Results 24hrs Laboratory Tests Test 12/15/18 06:14 White Blood Count 7.8 Red Blood Count 4.28 L Hemoglobin 13.1 L Hematocrit 39.2 L Mean Corpuscular Volume 91.6 Mean Corpuscular Hemoglobin 30.6 Mean Corpuscular Hemoglobin Concent 33.4 Red Cell Distribution Width 12.6 Platelet Count 219 Mean Platelet Volume 9.8 Immature Granulocytes % 0.500 H Neutrophils % 85.3 H Lymphocytes % 11.8 L Monocytes % 2.1 Eosinophils % 0.0 Basophils % 0.3 Nucleated Red Blood Cells % 0.0 Immature Granulocytes # 0.040 H Neutrophils # 6.6 Lymphocytes # 0.9 Monocytes # 0.2 L Eosinophils # 0.0 Basophils # 0.0 Nucleated Red Blood Cells # 0.0 Sodium Level 139 Potassium Level 5.1 Chloride Level 106 Carbon Dioxide Level 20 L Anion Gap 13 Blood Urea Nitrogen 43 H Creatinine 2.25 H Est Glomerular Filtrat Rate mL/min 30 L Glucose Level 131 Calcium Level 9.2 Medications Medication Current Medications Sodium Chloride 1,000 ml @ 40 mls/hr Q24H IV Last administered on 12/11/18at 00:00; Admin Dose 100 MLS/HR; Start 12/08/18 at 12:00 Morphine Sulfate (morphine) 2 mg Q4H PRN IV SEVERE PAIN LEVEL 7-10 Last administered on 12/12/18at 20:12; Admin Dose 2 MG; Start 12/08/18 at 12:00 Hydralazine HCl (Apresoline) 25 mg Q8 PO Last administered on 12/15/18 05:29; Admin Dose 25 MG; Start 12/08/18 at 17:00 Gabapentin (Neurontin) 100 mg TID PO Last administered on 12/15/18 09:12; Admin Dose 100 MG; Start 12/08/18 at 21:00 Acetaminophen (Tylenol Tab) 500 mg Q4H PRN PO MILD PAIN(1-3)OR ELEVATED TEMP Last administered on 12/15/18 09:12; Admin Dose 500 MG; Start 12/08/18 at 22:30 Ondansetron HCl (Zofran Inj) 4 mg Q6H PRN IV NAUSEA AND/OR VOMITING; Start 12/08/18 at 22:30 Hydralazine HCl (Apresoline) 10 mg Q6H PRN IV SBP>160 Last administered on 12/10/18 13:03; Admin Dose 10 MG; Start 12/09/18 at 14:30 Cefepime HCl 50 ml @ 100 mls/hr Q24H IVPB Last administered on 12/14/18 12:39; Admin Dose 100 MLS/HR; Start 12/10/18 at 13:00 Metoprolol Succinate (Toprol Xl) 50 mg DAILY PO Last administered on 12/15/18 09:12; Admin Dose 50 MG; Start 12/11/18 at 09:00 Ibuprofen (Motrin) 600 mg BID PRN PO MILD PAIN LEVEL 1-3 Last administered on 12/14/18 20:59; Admin Dose 600 MG; Start 12/10/18 at 15:30 Colchicine (Colchicine) 0.6 mg DAILY PO Last administered on 12/15/18 09:12; Admin Dose 0.6 MG; Start 12/11/18 at 09:00 Acetaminophen/ Hydrocodone Bitart ([place] (5/325)) 1 tab Q4H PRN PO MODERATE PAIN LEVEL 4-6 Last administered on 12/12/18 05:52; Admin Dose 1 TAB; Start 12/10/18 at 15:30 Zolpidem Tartrate (Ambien) 5 mg HS PRN PO INSOMNIA Last administered on 12/14/18 23:50; Admin Dose 5 MG; Start 12/11/18 at 20:00 Pantoprazole (Protonix Tab) 40 mg DAILY@06 PO Last administered on 12/15/18at 05:29; Admin Dose 40 MG; Start 12/14/18 at 06:00 Lactated Ringer's 1,000 ml @ 125 mls/hr Q8H IV Last administered on 12/15/18at 04:53; Admin Dose 125 MLS/HR; Start 12/14/18 at 20:30 JEN SALINAS Dec 15, 2018 10:21
[2018-12-15 11:09] VITALS: BP 149/80; PULSE 73; RESP 20
--- NOTE | 2018-12-15 11:46 | PDOCDIS ---
Discharge Instructions CONDITION [id number] Patient Condition: [id number] Stable HOME CARE INSTRUCTIONS: [id number] Diet Instructions: [id number] ACTIVITY: [id number] Activity Restrictions: [id number] Slowly Increase Activity Rest between Activity Avoid heavy lifting Do not Drive Do not operate Machinery Do not operate Power Tool [id number] Bathing Restrictions: [id number] Sponge Bath FOLLOW UP/APPOINTMENTS Follow-up Plan FU with Primary MD x 1 week FU with urology as recommended FU with nephrology as recommended Call 911 or go to the nearest hospital if symptoms get worse- patient verbalized understanding discharge instructions Dw Dr Ochoa/staff JEN SALINAS Dec 15, 2018 11:46
[2018-12-15] MEDS ORDERED: Colchicine PO (11:58)
[2018-12-15] MEDS ORDERED: METO-319 PO (11:58)
--- NOTE | 2018-12-15 11:59 | DS ---
Date/Time of Note Date/Time of Note DATE: 12/15/18 TIME: 11:59 Discharge Summary Admission/Discharge Info Admit Date/Time Dec 08, 2018 at 09:15 Discharge Date/Time Discharge Diagnosis 1. Severe right hydroureter with multiple obstructing ureteral stones and pr eservation of right renal parenchyma and multiple nonobstructive right renal calculi. 2. Severe left hydroureteronephrosis with severe atrophy of parenchyma and obstructive stone mid to distal ureter. - sp lithotripsy yesterday 3. Acute Kidney Injury 4. Possible infected stone versus right pyelonephritis. 5. Gout- colchicine 6. Obesity- weight management 7.History of hypertension. Dr Ochoa. staff Patient Condition: Stable Hospital Course The patient is a 63-year-old male with a history of right ureteral stone with hydronephrosis, sp laser treatment for his right stone, sp cystoscopy and ureteroscopy for a distal right ureter stone by Dr. Esteves. The recent CT scan of the abdomen and pelvis done at [facility] showed right ureteral stone with hydronephrosis. The patient also had obstructive uropathy with creatinine up to 8.2. The patient also has severe left hydroureter with severe atrophy of the parenchyma and left kidney in fact has no parenchymal that his worth saving. Patient had cystoscopy and insertion of right ureteral stent to drain his kidney and had lithotripsy. Patient is stable and is cleared to go home by consultants. Home Meds Active Scripts [Colchicine] 0.6 MG TAB No Conflict Check, 0.6 MG PO DAILY for 30 Days Prov:JEN SALINAS 12/15/18 Metoprolol Succinate* (Toprol XL*) 50 Mg Tab.er.24h, 50 MG PO DAILY for 60 Days Prov:JEN SALINAS 12/15/18 Reported Medications Gabapentin* (Gabapentin*) 300 Mg Capsule, 300 MG PO TID, #90 CAP 11/09/18 Discontinued Reported Medications Losartan Potassium* (Losartan Potassium*) 100 Mg Tablet, 100 MG PO DAILY, TAB 11/09/18 Primary Care Provider Not On Staff Doctor Time spent on discharge: < 30 minutes Pending Labs Laboratory Tests Test 12/15/18 06:14 White Blood Count 7.8 10^3/ul (4.8-10.8) Red Blood Count 4.28 10^6/ul (4.70-6.10) Hemoglobin 13.1 g/dl (14.0-18.0) Hematocrit 39.2 % (42.0-52.0) Mean Corpuscular Volume 91.6 fl (82.0-101.0) Mean Corpuscular Hemoglobin 30.6 pg (29.0-33.0) Mean Corpuscular Hemoglobin Concent 33.4 g/dl (32.0-37.0) Red Cell Distribution Width 12.6 % (11.5-14.5) Platelet Count 219 10^3/UL (140-415) Mean Platelet Volume 9.8 fl (7.4-10.4) Immature Granulocytes % 0.500 % (0.001-0.429) Neutrophils % 85.3 % (39.0-77.0) Lymphocytes % 11.8 % (15.0-51.0) Monocytes % 2.1 % (0.0-11.0) Eosinophils % 0.0 % (0.0-7.0) Basophils % 0.3 % (0.0-2.0) Nucleated Red Blood Cells % 0.0 /100WBC (0.0-0.0) Immature Granulocytes # 0.040 10^3/ul (0.0-0.031) Neutrophils # 6.6 10^3/ul (1.6-7.5) Lymphocytes # 0.9 10^3/ul (0.8-2.9) Monocytes # 0.2 10^3/ul (0.3-0.9) Eosinophils # 0.0 10^3/ul (0.0-0.5) Basophils # 0.0 10^3/ul (0.0-0.1) Nucleated Red Blood Cells # 0.0 10^3/ul (0.0-0.0) Sodium Level 139 mmol/L (135-144) Potassium Level 5.1 mmol/L (3.5-5.1) Chloride Level 106 mmol/L (97-110) Carbon Dioxide Level 20 mmol/L (21-31) Anion Gap 13 (5-13) Blood Urea Nitrogen 43 mg/dl (7-20) Creatinine 2.25 mg/dl (0.61-1.24) Est Glomerular Filtrat Rate mL/min 30 mL/min (>60) Glucose Level 131 mg/dl (70-220) Calcium Level 9.2 mg/dl (8.4-10.2) Microbiology Date/Time Source Procedure Growth Status 12/14/18 19:59 Bustos Catheter Urine Culture - Preliminary NO GROWTH Resulted AFTER 24 HOURS JEN SALINAS Dec 15, 2018 11:59
[2018-12-15] MEDS: CEFEPIME 1GM/50 ML (PMX) 50 ML IVPB SCH (12:34)
--- NOTE | 2018-12-16 13:35 | RADRPT ---
Vent Rate: 70 bpm RR Interval: 0 msec NH Interval: 170 msec QRS Duration: 90 msec QT Interval: 390 msec QTC Interval: 421 msec P-R-T Earling: 49 - 43 - 36 degrees Normal sinus rhythm Normal ECG Electronically Signed By: Scott Lowry
== END 2018-12-15 17:13 | disposition home or self-care (01) | DRG 661 ==
LOC: 2NE 09:15 → TEL 12-09 19:26
PROVIDERS: ADMIT Internal Medicine Nephrology; ATTEND Internal Medicine
PROC: 0T768DZ Dilation of Right Ureter with Intraluminal Device, Via Natural or Artificial Opening Endoscopic (ICD-10-PCS; principal; 2018-12-09 17:30)
PROC: 0TF3XZZ Fragmentation in Right Kidney Pelvis, External Approach (ICD-10-PCS; 2018-12-14)
DX: N13.6 Pyonephrosis (principal); N17.0 Acute kidney failure with tubular necrosis; I12.9 Hypertensive chronic kidney disease with stage 1 through stage 4 chronic kidney disease, or unspecified chronic kidney disease; E66.9 Obesity, unspecified; Z68.32 Body mass index [BMI] 32.0-32.9, adult; D50.9 Iron deficiency anemia, unspecified; E83.39 Other disorders of phosphorus metabolism; K57.90 Diverticulosis of intestine, part unspecified, without perforation or abscess without bleeding; K76.0 Fatty (change of) liver, not elsewhere classified; M10.9 Gout, unspecified; M25.469 Effusion, unspecified knee; N18.9 Chronic kidney disease, unspecified; M25.562 Pain in left knee; M25.561 Pain in right knee
CPT/HCPCS: 71045; 73560; 74018; 74176; 74430; 80048; 80053; 81001; 84100; 84484; 84560; 85025; 85610; 87081; 87086; 93005; C2617; C9113; J0360; J0690; J0692; J0696; J1100; J1170; J1885; J1940; J2250; J2270; J2405; J2710; J2765; J3010; J7030; J7120; Q9967

== ENCOUNTER 2019-02-04 08:30 | Day surgery (SDC) | payer OTHER ==
[~2019-02-04] VITALS: Ht 167.6 cm; Wt 82.0 kg
[2019-02-04] VITALS (20 sets, daily range): BP systolic 126–183; BP diastolic 82–92; PULSE 44–78; RESP 4–22; Ht 167.6 cm; Wt 82.0 kg
[~2019-02-04 08:30] MED LIST changes: +Colchicine PO; +LIDOCAINE 2% (SDV) 5 ML INJ ONE; -LOSA100T15 PO; +METO-319 PO; +PROPOFOL 200 MG INJ ONE; +ROCURONIUM 50 MG INJ ONE
--- NOTE | 2019-02-04 09:16 | HPN ---
Date/Time of Note Date/Time of Note DATE: 02/04/19 TIME: 09:16 Interval H&P Admission Note Pt. seen H&P reviewed: No system changes MONICA PADGETT MD Feb 04, 2019 09:16
[2019-02-04] MEDS ORDERED: LACTATED RINGER'S 1,000 ML IV SCH (09:30)
[2019-02-04] MEDS ORDERED: CEFTRIAXONE 1 GM/50 ML (PMX) 50 ML IVPB ONE (09:30)
--- NOTE | 2019-02-04 11:09 | PREAC ---
Date/Time of Note Date/Time of Note DATE: 02/04/19 TIME: 10:59 Anesthesia Eval and Record Evaluation Time Pre-Procedure Interview DATE: 02/04/19 TIME: 10:59 Age 63 Sex male NPO: 8 hrs Preoperative diagnosis Nephrolithiasis Planned procedure Cystoscopy, uteral stent removal, and extracorporeal shockwave lithotripsy Past Medical History Past Medical History: Includes Cardio: HTN Neuro: Peripheral neuropathy Renal: CKD Surgery & Anesthesia Issues No known issue Meds Anticoagulation: No Beta Pia within 24 hr: No Reason Beta Pia not given: Pt. not on B-Pia Active Scripts [Colchicine] 0.6 MG TAB No Conflict Check, 0.6 MG PO DAILY for 30 Days Prov:JEN SALINAS 12/15/18 Metoprolol Succinate* (Toprol XL*) 50 Mg Tab.er.24h, 50 MG PO DAILY for 60 Days Prov:JEN SALINAS 12/15/18 Reported Medications Gabapentin* (Gabapentin*) 300 Mg Capsule, 300 MG PO TID, #90 CAP 11/09/18 Current Medications Lactated Ringer's 1,000 ml @ 50 mls/hr Q20H IV ; Start 02/04/19 at 09:30 Meds reviewed: Yes Allergies Coded Allergies: No Known Allergies (Verified Allergy, Unknown, 11/09/18) Allergies Reviewed: Yes Labs/Studies Labs Reviewed: Reviewed by anesthesiologist Result Diagram: 02/04/1913 02/04/1913 Laboratory Tests 02/04/19 09:13 test: N/A Pre-procedure Exam Last vitals Vital Signs Date Temp Pulse Resp B/P (MAP) Pulse Ox O2 O2 Flow FiO2 Time Delivery Rate 02/04/19 98.0 67 16 138/82 98 Room Air 08:45 (100) Airway: Adequate mouth opening, Adequate thyromental dist Mallampati: Mallampati II Teeth: Normal Lung: Normal Heart: Normal ASA Physical Status ASA physical status: 2 Emergency: None Planned Anesthetic General/MAC: ETT Pre-operative Attestations Prior to commencing anesthesia and surgery, the patient was re-evaluated, there was verification of: *The patient's identity *The results of appropriate recent lab work and preoperative vital signs *The above evaluation not changing prior to induction *Anesthetic plan, risk benefits, alternative and complications discussed with patient/family; questions answered; patient/family understands, accepts and wishes to proceed. INDIO GODFREY MD Feb 04, 2019 11:09
[2019-02-04] MEDS ORDERED: MIDAZOLAM 1 MG/ML 2 ML INJ ONE (11:16)
[2019-02-04] MEDS ORDERED: FENTAnyl 50 MCG/ML VIAL ONE (11:33)
[2019-02-04] MEDS ORDERED: DEXAMETHASONE 4 MG/ML 5 ML INJ ONE (11:33)
[2019-02-04] MEDS ORDERED: ONDANSETRON 4 MG INJ ONE (11:33)
[2019-02-04] MEDS ORDERED: LABETALOL HCL 20MG INJ IV PRN (12:00)
[2019-02-04] MEDS ORDERED: HYDROmorphONE 1 MG/5 ML IV SYRINGE IV PRN ×2 (12:00)
[2019-02-04] MEDS ORDERED: OXYCODONE/ACETAMINOPHEN (5/325) TAB PO PRN ×2 (12:00)
[2019-02-04] MEDS ORDERED: hydrALAzine 20 MG INJ IV PRN (12:00)
[2019-02-04] MEDS ORDERED: FENTAnyl 50 MCG/ML VIAL IV PRN ×2 (12:00)
[2019-02-04] MEDS ORDERED: ONDANSETRON 4 MG INJ IV PRN ×2 (12:00→12:30)
[2019-02-04] MEDS ORDERED: FUROSEMIDE 20 MG INJ ONE (12:13)
[2019-02-04] MEDS ORDERED: HYDROCODONE/APAP (5/325) TAB PO PRN (12:30)
--- NOTE | 2019-02-04 12:34 | OPR ---
Date/Time of Note Date/Time of Note DATE: 02/04/19 TIME: 12:30 Operative Report Procedure Date: Feb 04, 2019 Preoperative Diagnosis Right renal stone Postoperative Diagnosis Right renal stone Operation/Procedure Performed Right extracorporeal shockwave lithotripsy, cystoscopy and removal of right ureteral JJ stent Surgeon see signature line Processing Operator medical technologist clinical Dominique Anesthesia Type: general Anesthesiologist: INDIO GODFREY MD Estimated Blood Loss: none Transfusion none Specimen None Grafts/Implants none Complications none Pt Condition Post Procedure: stable Disposition: PACU Indications Right renal stone Procedure Description The patient was brought to the operating room. He was positioned in the supine position on the lithotripsy machine table. He was given general anesthesia and 1 g of ceftriaxone at the start of the procedure. Timeout was done and the patient was identified by his name, birthdate, the procedure and the side of the procedure. The stone located in the lower pole calyx of the right kidney and measuring 11 mm was then visualized on both screens. The shockwave lithotripsy was then started. The energy level started with 3 KV and went up to 7 gradually. The position of the stone was checked regularly every 300-400 shockwaves. The stone appeared to be breaking well and the total shockwaves delivered were 1500 sh ocks. The patient was then repositioned in the lithotomy position and the genital area was prepped and draped in the usual sterile manner. #21 Khmer cystoscope sheath was introduced under direct vision through the penile urethra all the way to the bladder. The distal end of the JJ stent that he had was then grasped with a grasper and pulled out under fluoroscopy the proximal and did uncurl easily. The bladder was emptied and the patient tolerated the procedure well and was transferred to the recovery room in a stable and satisfactory condition. MONICA PADGETT MD Feb 04, 2019 12:34
--- NOTE | 2019-02-04 12:41 | PAC ---
Date/Time of Note Date/Time of Note DATE: 02/04/19 TIME: 12:40 Post-Anesthesia Notes Post-Anesthesia Note Last documented vital signs Vital Signs Date Temp Pulse Resp B/P (MAP) Pulse Ox O2 O2 Flow FiO2 Time Delivery Rate 02/04/19 98.0 67 16 138/82 98 Room Air 08:45 (100) Activity: WNL Respiratory function: WNL Cardiovascular function: WNL Mental status: Baseline Pain reasonably controlled: Yes Hydration appropriate: Yes Nausea/Vomiting absent: Yes INDIO GODFREY MD Feb 04, 2019 12:40
== END 2019-02-04 14:30 | disposition home or self-care (01) ==
LOC: SDS 08:30
PROVIDERS: ATTEND Urology
DX: N20.0 Calculus of kidney (principal); I12.9 Hypertensive chronic kidney disease with stage 1 through stage 4 chronic kidney disease, or unspecified chronic kidney disease; N18.9 Chronic kidney disease, unspecified
CPT/HCPCS: 52356; 71045; 74018; 80053; 81001; 85025; 85610; 85730; 93005; J0360; J0696; J1100; J1940; J2250; J2405; J3010; Z7512; Z7610